=== PATIENT | female | born 1955 | race Caucasian/White ===

== ENCOUNTER 2020-03-08 11:12 | Inpatient (IN) ==
[2020-03-08] MEDS ORDERED: ceFAZolin 2 GM in DEXTROSE 5% IN WATER 50 ML IV SCH (11:15)
[2020-03-08] MEDS ORDERED: LIDOCAINE HCL/PF 100 MG/5 ML SYRINGE IV ONE (13:05)
[2020-03-08] MEDS ORDERED: fentaNYL 100 MCG/2 ML VIAL IV ONE (13:05)
[2020-03-08] MEDS ORDERED: KETAMINE 100 MG/ML ML IV ONE (13:05)
[2020-03-08] MEDS ORDERED: HYDROmorphone 1 MG/ML SYRINGE IV ONE (13:05)
[2020-03-08] MEDS ORDERED: PHENYLEPHRINE 10 MG/ML VIAL IV ONE (13:05)
[2020-03-08] MEDS ORDERED: DEXAMETHASONE 10 MG/ML VIAL IV ONE (13:05)
[2020-03-08] MEDS ORDERED: GLYCOPYRROLATE 0.2 MG/ML VIAL IV ONE (13:05)
[2020-03-08] MEDS ORDERED: KETOROLAC 30 MG/ML VIAL IV ONE (13:05)
[2020-03-08] MEDS ORDERED: PROPOFOL 200 MG/20 ML VIAL IV ONE (13:05)
[2020-03-08] MEDS ORDERED: TRANEXAMIC ACID 1,000 MG/10 ML VIAL IV ONE (13:05)
[2020-03-08] MEDS ORDERED: ONDANSETRON 4 MG/2 ML VIAL IV ONE (13:05)
[2020-03-08] MEDS ORDERED: ACETAMINOPHEN 700 MG/70 ML BOTTLE IV ONE (14:42)
[2020-03-08] MEDS ORDERED: LABETALOL 5 MG/ML ML IV PRN (14:42)
[2020-03-08] MEDS ORDERED: fentaNYL 100 MCG/2 ML VIAL IV PRN (14:42)
[2020-03-08] MEDS ORDERED: NALOXONE HCL 0.4 MG/ML VIAL IV PRN (14:42)
[2020-03-08] MEDS ORDERED: MEPERIDINE 25 MG/ML SYRINGE IV PRN (14:42)
[2020-03-08] MEDS ORDERED: METHOCARBAMOL 1,000 MG/10 ML VIAL IV PRN (14:42)
[2020-03-08] MEDS ORDERED: FLUMAZENIL 0.1 MG/ML ML IV PRN (14:42)
[2020-03-08] MEDS ORDERED: ONDANSETRON 4 MG/2 ML VIAL IV PRN (14:42)
[2020-03-08] MEDS ORDERED: IPRATROPIUM/ALBUTEROL 3 ML AMPUL.NEB NEB PRN (14:42)
[2020-03-08] MEDS ORDERED: METOPROLOL TARTRATE 5 MG/5 ML VIAL IV PRN (14:42)
[2020-03-08] MEDS ORDERED: LACTATED RINGERS 250 ML IV PRN (14:42)
--- NOTE | 2020-03-08 15:59 | Brief Operative Note ---
Brief Operative Note Date of procedure: 03/08/20 Pre-op diagnosis: right lateral tibial plateau fracture Post-op diagnosis: same Procedure: ORIF of right tibial plateau fracture Grafts/Implants: Yes Anesthesia: spinal and GLMA Findings: split depressed tibial plateau fracture Complications: none Surgeon: Richardson Rivas Fluxer: Alexx Ball Estimated blood loss (cc): 30 Tourniquet Time (Minutes): 120 Specimens Removed/Pathology: none sent Condition: stable Disposition: PACU
[2020-03-08] MEDS: LACTATED RINGERS 1,000 ML IV SCH ×2 (16:05→16:21)
[2020-03-08] MEDS ORDERED: FLEETS ADULT ENEMA PR PRN (16:10)
[2020-03-08] MEDS ORDERED: POLYETHYLENE GLYCOL 3350 17 GM PACKET PO PRN (16:10)
[2020-03-08] MEDS ORDERED: BENZOCAINE/MENTHOL 1 LOZENGE PO PRN (16:10)
[2020-03-08] MEDS ORDERED: MAGNESIUM HYDROXIDE 30 ML ORAL.SUSP PO PRN (16:10)
[2020-03-08] MEDS ORDERED: BISACODYL 10 MG SUPP.RECT PR PRN (16:10)
--- NOTE | 2020-03-08 16:13 | XRay Report ---
INDICATION: ORIF Tibial Plateau TECHNIQUE: 1.5 minutes fluoroscopy and 3.21 mGy exposure utilized by Dr[address] Rivas. Intraoperative spot films obtained IMPRESSION: Open reduction and internal fixation of right tibial plateau fracture Interpreted and Authenticated by: Ryan Benitez 03/08/20
[2020-03-08] MEDS ORDERED: LACTATED RINGERS 1,000 ML IV SCH (16:15)
--- NOTE | 2020-03-08 17:02 | XRay Report ---
INDICATION: s/p orif tibial plateau fracture TECHNIQUE: AP and lateral COMPARISON: Preoperative plain film dated 03/07/2020. Preoperative CT scan dated 03/07/2020 FINDINGS:Status post open reduction and internal fixation of right lateral tibial plateau fracture. There is plate and screw fixation. There is methylmethacrylate within the right tibial metaphysis. Alignment is markedly improved and essentially anatomic IMPRESSION: Open reduction and internal fixation of right lateral tibial plateau fracture Interpreted and Authenticated by: Ryan Benitez 03/08/20
[2020-03-08] MEDS: ceFAZolin 1 GM in DEXTROSE 5% IN WATER 50 ML IV SCH ×2 (17:20→17:23)
[2020-03-08] MEDS: VANCOMYCIN 1 GM VIAL TOPICAL SCH (17:24)
[2020-03-08] MEDS: oxyCODONE HCL 5 MG TABLET PO PRN ×2 (19:15→23:10)
[2020-03-08] MEDS ORDERED: ACETAMINOPHEN 325 MG TABLET PO SCH (22:00)
[2020-03-08] MEDS: ceFAZolin 1 GM VIAL IV SCH (22:02)
[2020-03-08] MEDS: DOCUSATE SODIUM 100 MG CAPSULE PO SCH (22:03)
[2020-03-08] MEDS: ACETAMINOPHEN 500 MG TABLET PO SCH (22:03)
[2020-03-08] MEDS: APIXABAN 5 MG TABLET PO SCH (22:03)
[2020-03-08] MEDS: SENNOSIDES 1 TABLET PO SCH (22:04)
[2020-03-09] MEDS: oxyCODONE HCL 5 MG TABLET PO PRN ×6 (03:06→21:46)
[2020-03-09] MEDS: ceFAZolin 1 GM VIAL IV SCH (03:37)
[2020-03-09] MEDS: METHOCARBAMOL 1,000 MG/10 ML VIAL IV PRN ×2 (04:24→13:21)
[2020-03-09] MEDS: ACETAMINOPHEN 500 MG TABLET PO SCH ×3 (05:36→21:35)
--- NOTE | 2020-03-09 07:28 | Operative Note ---
DATE OF OPERATION: 03/08/2020 PREOPERATIVE DIAGNOSIS: Right lateral tibial plateau fracture. POSTOPERATIVE DIAGNOSIS: Right lateral tibial plateau fracture. PROCEDURE PERFORMED: Open reduction and internal fixation of right lateral tibial plateau fracture. SURGEON: Richardson Rivas MD PULP COOKER: Alexx Ball PA-C. This provider's expertise and technical skill were required throughout the case. The PA assisted with preoperative coordination, intraoperative retraction, wound closure, dressing and splint application, as well as postoperative documentation and care coordination. ANESTHESIA: Spinal with general. IV FLUIDS: 1300 mL lactated ringer. ESTIMATED BLOOD LOSS: 30 mL. TOURNIQUET TIME: 2 hours at 225 mmHg. IV ANTIBIOTICS: 2 grams Ancef. IMPLANTS: Synthes short bend proximal tibial plate. K-wires x3 0.045. Norian bone cement. PATHOLOGY/LAB: None. INTRAOPERATIVE COMPLICATIONS: None apparent. OPERATIVE FINDINGS: Split depression fracture of the lateral tibial plateau, significant osteopenic bone. INDICATIONS: The patient is a 64-year-old female who fell over the weekend and presented to the Emergency Department yesterday with a tibial plateau fracture. She was subsequently referred to the orthopedic clinic today where she was evaluated and found to have a significant depressed fragment of over 1 cm long with a proximal fibula fracture. I discussed this with her at length and the treatment options with recommendation for operative treatment. I discussed that this would likely improve her overall functional status and realign her mechanical axis and improve range of motion and decrease long-term pain. I did discuss she has baseline risk of arthritis as well as chronic pain from retained hardware symptomatic given her small habitus. She understands the risks as well as the treatment options. She understands the nonweightbearing portion postoperatively and is able to be compliant with this. Given that, she does want to proceed with surgery. DESCRIPTION OF PROCEDURE: The patient was met in the preoperative holding area where site was verified and marked with the patient's input. She was then taken back to the operating room where she underwent successful spinal and then under general anesthesia, she was placed in supine position with her right lower extremity padded and a well-padded tourniquet placed about the proximal thigh with a small ipsilateral bump. She was then prepped and draped in the usual sterile fashion with ChloraPrep. A surgical timeout was performed to verify patient identity, correct procedure being performed, correct extremity being operated on and everybody was in agreement. Esmarch was utilized to exsanguinate the lower extremity and tourniquet was insufflated at 225 mmHg. I created an incision from just proximal to the joint line through the ITB, incised in curvilinear fashion tracking of the tubercle a finger and a half breadth off the tibial crest. Skin was sharply incised. The fascia of the anterior compartment was identified as well as the greater tubercle and the IT band proximally. Gilpy retractors were placed, incised in line with the fibers of the IT band over the greater tubercle and in line with the fascia over the anterior compartment. These were then elevated anteriorly and posteriorly and care was taken to dissect this free from the joint capsule itself. No arthrotomy was made at this point. Once the anterior and posterior flaps were taken the posterior was all the way taken back to the level of the anterior aspect of the fibula. I wanted to go to this extent given that most of the depressed fragments appeared to be most posteriorly. A submeniscal arthrotomy was made. 2-0 Ethibond sutures were placed to retract. Hematoma was evacuated and irrigated with normal saline throughout the case. Joint space was easily identified and had significant depression. At this point, there was a split laterally as well. This was booked open with a small cortical window more inferiorly to get a better angle for tamping these fragments off. Then, under fluoroscopy, these fragments were tamped up and the osteophytic bone compressed quite a bit leaving a large void. The posterior portion was elevated until directly visualized and with posterior comminution.. I did impact 30 mL of cortical bone chips here, approximately half the packet and then once the height was restored I closed the lateral split fragment and placed 3 K-wires subchondral to hold this up. I did this on the lateral view as well on the AP to ensure that the reduction was maintained. I then impacted the remainder of the cortical bone chips within the void. There was still a fairly large void left. At this point, I placed the plate and placed the screw in the oblong hole to compress the plate to the bone and placed two K-wires in the plate distally to keep the rotational alignment. Then, utilizing a pelvic reduction clamp I decreased with of the overall tibial plateau. Subsequently, we placed two nonlocking screws in the proximal portion of the plate to compress the fracture even further. I was able to compress it; however, not completely down to where the lateral tibial plateau is in line with the lateral border of the femoral condyle; however, it was improved and overall joint articulation was near anatomic under direct visualization. I was unable to contine to compress as the point to point clamp did penetrate the medial cortex given the osteoporotic bone. Placed the rafting screws in the 2 rows of screws in the plate which were locking. The non locking screws were changed out for locking screws. Placed the most distal screw in the plate-3.5 cortical nonlocking as well and then placed a kickstand screw in a locking fashion. The remaining void was then filled with Norian bone cement. The wounds were copiously irrigated. Final radiographs were taken and seemed satisfactory. The anterior compartment fascia was closed with 0 Vicryl. The IT band split was closed with a Stratafix in running fashion, subcutaneous tissue with a 3-0 Vicryl and skin closed with felicia. I did place vancomycin powder deep in the wound. The leg was then cleaned and dried. Xeroform was placed along with fluffs, Webril and Josse wrap and into a knee immobilizer in which she had arrived. At this point, the patient was awoken from anesthesia, transferred to PACU in stable condition. PLAN: The patient will be admitted for postoperative pain control and evaluation by Physical Therapy for significant weakness. MARIAN:gloria Job ID: [id number] Doc ID: [id number] Richardson VALENCIA
[2020-03-09] MEDS: DOCUSATE SODIUM 100 MG CAPSULE PO SCH ×2 (09:31→21:34)
[2020-03-09] MEDS: APIXABAN 5 MG TABLET PO SCH ×2 (09:31→21:33)
[2020-03-09] MEDS: FOLIC ACID 1 MG TABLET PO SCH (09:31)
[2020-03-09] MEDS: 0.9 % SODIUM CHLORIDE 10 ML SYRINGE IV SCH (09:32)
[2020-03-09] MEDS: LISINOPRIL 10 MG TABLET PO SCH (09:32)
--- NOTE | 2020-03-09 13:34 | Orthopedic Progress Note ---
SUBJECTIVE Subjective Patient information: Note initiated : 03/09/20 at 1:27 pm Service Date, if different from initiated Date: [] Patient: Fred Christine 64 y/o F admitted on 03/08/20 for Right Tibial Plateau Open Reduction Internal . Chief Complaint: [POD 1 s/p ORIF right tibial plateau fracture. Pain controlled. No chest pain or shortness of breath. No new complaints.] Constitutional Vitals: Vital Signs Temp Pulse Resp BP Pulse Ox 98.1 F 94 H 12 100/57 90 03/09/20 08:00 03/09/20 08:00 03/09/20 08:00 03/09/20 08:00 03/09/20 08:00 Period Temp Pulse Resp BP Sys/Bartlett Pulse Ox Last 24 Hr 97.1 F-99.6 F 71-114 10-20 90-143/43-72 90-99 Intake and Output 03/08/20 03/09/20 03/09/20 21:59 05:59 13:59 Intake Total 2075 360 Output Total 1130 200 Balance 945 160 Intake & Output: Intake & Output 03/08/20 03/09/20 03/09/20 21:59 05:59 13:59 Intake Total 2075 360 Output Total 1130 200 Balance 945 160 Intake: IV 75 Lactated Ringers 1,000 ml @ 20 5 mls/hr IV .Q24H [facility] Rx#: [id number] Oral 360 IV - Manual Only 2000 Output: Urine Catheter Amount 1100 Straight 1100 Void Amount 200 Estimated Blood Loss 30 Other: Urine Appearance Clear Urine Color Dark Yellow Urine Odor Normal General: awake, alert and oriented. appropriate Right leg: dressing in place and is dry. Foot warm well perfused, sensation is intact to light touch. OBJ DATA Labs Meds: Medications Acetaminophen (Tylenol) 1,000 mg PO Q8 [facility]; Protocol Last Admin: 03/09/20 13:21 Dose: 1,000 mg Documented by: Apixaban (Eliquis) 2.5 mg PO BID [facility] Last Admin: 03/09/20 09:31 Dose: 2.5 mg Documented by: Bisacodyl (Dulcolax) 10 mg GA Q2-3DAYS PRN PRN Reason: Constipation Docusate Sodium (Colace) 100 mg PO BID [facility] Last Admin: 03/09/20 09:31 Dose: 100 mg Documented by: Folic Acid (Folic Acid) 1 mg PO DAILY [facility] Last Admin: 03/09/20 09:31 Dose: 1 mg Documented by: Lisinopril (Zestril) 10 mg PO DAILY [facility] Last Admin: 03/09/20 09:32 Dose: 10 mg Documented by: Magnesium Hydroxide (Milk Of Magnesia) 30 ml PO BIDP PRN PRN Reason: Constipation Methocarbamol (Robaxin) 750 mg IV Q6HP PRN PRN Reason: Muscle Spasm Last Admin: 03/09/20 13:21 Dose: 750 mg Documented by: Oxycodone HCl (Roxicodone) 0 mg PO Q4HP PRN; Protocol PRN Reason: Per Pain Protocol Last Admin: 03/09/20 10:34 Dose: 10 mg Documented by: Polyethylene Glycol (Miralax) 17 gm PO DAILYP PRN PRN Reason: Constipation Senna (Senokot) 2 tab PO HS [facility] Last Admin: 03/08/20 22:04 Dose: 2 tab Documented by: Sodium Biphosphate/Sodium Phosphate (Fleets Adult) 1 dose GA Q3-4DAYS PRN PRN Reason: Constipation Sodium Chloride (Saline Flush) 10 ml IV DAILY [facility] Last Admin: 03/09/20 09:32 Dose: 10 ml Documented by: Throat Lozenges (Cepacol) 1 lozenge PO PRN PRN PRN Reason: Sore Throat Vancomycin HCl (Vancomycin) 1 gm TOPICAL ONCE [facility]; Protocol Last Admin: 03/08/20 17:24 Dose: Not Given Documented by: A/P Time Spent With Patient Time: A/P: POD 1 s/p ORIF right tibial plateau fracture -- PT/OT- non weight bearing right lower extremity for 10-12 weeks. -------ROM 0-90 degrees -- oral pain medications -- regular diet -- home meds -- prophy: IS, scds, mobilization, eliquis -- Dispo: patient is fairly decondition with weakness in bilateral lower extremities and mobilization is difficult now that she is non weight bearing right lower extremity. Will see how she does with therapy. She may need a short stay at a rehab facility.
[2020-03-09] MEDS: VANCOMYCIN 1 GM VIAL TOPICAL SCH (14:35)
[2020-03-09] MEDS: SENNOSIDES 1 TABLET PO SCH (21:33)
[2020-03-10] MEDS: oxyCODONE HCL 5 MG TABLET PO PRN ×3 (01:59→09:58)
[2020-03-10] MEDS: ACETAMINOPHEN 500 MG TABLET PO SCH (05:58)
[2020-03-10] MEDS: FOLIC ACID 1 MG TABLET PO SCH (09:56)
[2020-03-10] MEDS: APIXABAN 5 MG TABLET PO SCH (09:56)
[2020-03-10] MEDS: DOCUSATE SODIUM 100 MG CAPSULE PO SCH (09:57)
[2020-03-10] MEDS: LISINOPRIL 10 MG TABLET PO SCH (09:59)
--- NOTE | 2020-03-10 10:26 | Orthopedic Progress Note ---
SUBJECTIVE Subjective Patient information: Note initiated : 03/10/20 at 10:19 am Service Date, if different from initiated Date: [] Patient: Fred Christine 64 y/o F admitted on 03/08/20 for Right Tibial Plateau Open Reduction Internal . Chief Complaint: [POD 2 s/p right lateral tibial plateau fracture doing ok. She is fairly weak making mobilization a bit more difficult. No chest pain or shortness or breath. Pain is ok.] Constitutional Vitals: Vital Signs Temp Pulse Resp BP Pulse Ox 98.1 F 75 20 105/53 96 03/10/20 08:00 03/10/20 08:00 03/10/20 08:00 03/10/20 08:00 03/10/20 08:00 Period Temp Pulse Resp BP Sys/Bartlett Pulse Ox Last 24 Hr 98.1 F-98.4 F 70-95 12-20 93-115/44-58 90-96 Intake and Output 03/09/20 03/10/20 03/10/20 21:59 05:59 13:59 Intake Total 240 340 Output Total 300 200 Balance -60 340 -200 Weight 116 lb Intake & Output: Intake & Output 03/09/20 03/10/20 03/10/20 21:59 05:59 13:59 Intake Total 240 340 Output Total 300 200 Balance -60 340 -200 Weight 116 lb Intake: Oral 240 340 Output: Void Amount 300 200 Other: Meal Breakfast Percent of Meal Consumed 25% Urine Appearance Clear Clear Urine Color Bright Yellow Bright Yellow Urine Odor Normal General: awake, alert and oriented. Appropriate Right leg: dressing removed. Incision is clean and dry. No drainage or indication of infection. Significant quad atrophy. Can get to full knee extension. Able to PF/DF ankle and flex/ext digits. Foot warm well perfused. Senstaion to light touch intact throughout the foot. OBJ DATA Labs Meds: Medications Acetaminophen (Tylenol) 1,000 mg PO Q8 [facility]; Protocol Last Admin: 03/10/20 05:58 Dose: 1,000 mg Documented by: Apixaban (Eliquis) 2.5 mg PO BID [facility] Last Admin: 03/10/20 09:56 Dose: 2.5 mg Documented by: Bisacodyl (Dulcolax) 10 mg CA Q2-3DAYS PRN PRN Reason: Constipation Docusate Sodium (Colace) 100 mg PO BID [facility] Last Admin: 03/10/20 09:57 Dose: 100 mg Documented by: Folic Acid (Folic Acid) 1 mg PO DAILY [facility] Last Admin: 03/10/20 09:56 Dose: 1 mg Documented by: Lisinopril (Zestril) 10 mg PO DAILY [facility] Last Admin: 03/10/20 09:59 Dose: 10 mg Documented by: Magnesium Hydroxide (Milk Of Magnesia) 30 ml PO BIDP PRN PRN Reason: Constipation Methocarbamol (Robaxin) 750 mg IV Q6HP PRN PRN Reason: Muscle Spasm Last Admin: 03/09/20 13:21 Dose: 750 mg Documented by: Oxycodone HCl (Roxicodone) 0 mg PO Q4HP PRN; Protocol PRN Reason: Per Pain Protocol Last Admin: 03/10/20 09:58 Dose: 10 mg Documented by: Polyethylene Glycol (Miralax) 17 gm PO DAILYP PRN PRN Reason: Constipation Senna (Senokot) 2 tab PO HS [facility] Last Admin: 03/09/20 21:33 Dose: 2 tab Documented by: Sodium Biphosphate/Sodium Phosphate (Fleets Adult) 1 dose CA Q3-4DAYS PRN PRN Reason: Constipation Sodium Chloride (Saline Flush) 10 ml IV DAILY [facility] Last Admin: 03/09/20 09:32 Dose: 10 ml Documented by: Throat Lozenges (Cepacol) 1 lozenge PO PRN PRN PRN Reason: Sore Throat Vancomycin HCl (Vancomycin) 1 gm TOPICAL ONCE [facility]; Protocol Last Admin: 03/09/20 14:35 Dose: Not Given Documented by: A/P Time Spent With Patient Time: POD 2 s/p ORIF of right tibial plateau fracture doing ok. -- non weight bearing. She needs a hinged knee brace so she can work on ROM exercises while supporting the fracture and bend her knee while sitting. The proximal fibula needs to be supported during ROM. Discussed this with her and hinged knee brace is ordered. -- PT/OT- limited mobility but improving, needs to work on quad strengthening as well -- oral pain meds -- regular diet -- IS/foot pumps, mobilization, eliquis -- dispo: plan for d/c today with home health. Will need the hinged knee brace prior to d/c. meds and forms filled out.
[2020-03-10] MEDS: 0.9 % SODIUM CHLORIDE 10 ML SYRINGE IV SCH (10:33)
--- NOTE | 2020-03-10 11:31 | Discharge Summary ---
Discharge Provider Provider Patient information: Note initiated : 03/10/20 at 11:28 am Service Date, if different from initiated Date: [] Patient: Fred Christine 64 y/o F admitted on 03/08/20 for Right Tibial Plateau Open Reduction Internal . Chief Complaint: Right leg pain Date of admission: 03/08/20 16:10 Discharge date: 03/10/20 COURSE Hospital Course Hospital course: Pt is POD#2 s/p ORIF right tibial plateau fracture. Discharge diagnosis: closed fracture, right tibial plateau. Physical Examination Exam Incision healing: Yes Incision draining: No Incision red: No Incision swollen: No Clean and dry: Yes Weight bearing status: none (nonweightbearing with right leg.) DC Instructions-General Patient Instructions Additional Dressing Instructions: may shower with silver dressing in place. Discharge Plan Patient/Caregiver Discharge Instructions Activity: non-weight bearing Diet: Regular Diet Activity Restrictions/Additional Instructions: Nonweightbearing with the right leg. ROM restrictions: 0-90 degrees. Remain in the knee brace locked in extension while transferring. Work on quad sets, heel slides to 90 degrees and ankle pumps. Keep dressing clean and dry. OK to shower with silver dressing in place. If becomes wet or begins to come off, OK to change to new dry dressing. Otherwise keep in place until followup with orthopedics in 2 weeks for staple removal and wound check. Prescriptions: New acetaminophen [Tylenol Extra Strength] 500 mg Tablet 1,000 mg PO Q8 Qty: 60 RF: 0 docusate sodium 100 mg Capsule 100 mg PO BID Qty: 60 RF: 0 oxycodone 5 mg Tablet 10 mg PO Q4HP PRN (Reason: Per Pain Protocol) Qty: 60 RF: 0 Eliquis 5 mg Tablet 2.5 mg PO BID Qty: 60 RF: 0 Continued folic acid 1 MG tablet 1 mg PO DAILY RF: 0 ondansetron 4 MG tablet 4 mg SL Q6HP PRN (Reason: Nausea) RF: 0 lisinopril 10 mg tablet 10 mg PO DAILY RF: 0 Other Ambulatory Orders: Brace/Splint (ONCE) Timeframe: [id number] Location: None Selected Ordered By: Richardson Rivas Follow Up Plan Follow up with: Alexx Ball PA-C [Physician Wide Piece Goods Inspector] - (f/u in 2 weeks--postop for staple removal and wound check. ) Rivas,Richardson Mikayla, MD [Physician] - (Follow up with on Mar.24 at 920 am) Patient Disposition: Home Health Service Rehab Potential: Good Overall status at discharge: patient is progressing back to baseline Discharge Orders: Discharge Order (Routine); Ordered 03/10/20 Ordered By: Alexx Ball Pending Pending Pending: Resuscitation Status Full Code Diet Regular Diet Start SunMar 09 1703 Acetaminophen (Tylenol) 1,000 mg PO Q8 [facility]; Protocol Last Admin: 03/10/20 05:58 Dose: 1,000 mg Documented by: Admin: 03/09/20 21:35 Dose: 1,000 mg Documented by: Admin: 03/09/20 13:21 Dose: 1,000 mg Documented by: Admin: 03/09/20 05:36 Dose: 1,000 mg Documented by: Admin: 03/08/20 22:03 Dose: 1,000 mg Documented by: NUPUR Apixaban (Eliquis) 2.5 mg PO BID [facility] Last Admin: 03/10/20 09:56 Dose: 2.5 mg Documented by: Admin: 03/09/20 21:33 Dose: 2.5 mg Documented by: Admin: 03/09/20 09:31 Dose: 2.5 mg Documented by: Admin: 03/08/20 22:03 Dose: 2.5 mg Documented by: NUPUR Docusate Sodium (Colace) 100 mg PO BID [facility] Last Admin: 03/10/20 09:57 Dose: 100 mg Documented by: Admin: 03/09/20 21:34 Dose: 100 mg Documented by: Admin: 03/09/20 09:31 Dose: 100 mg Documented by: Admin: 03/08/20 22:03 Dose: 100 mg Documented by: NUPUR Folic Acid (Folic Acid) 1 mg PO DAILY [facility] Last Admin: 03/10/20 09:56 Dose: 1 mg Documented by: Admin: 03/09/20 09:31 Dose: 1 mg Documented by: DIANA Lisinopril (Zestril) 10 mg PO DAILY [facility] Last Admin: 03/10/20 09:59 Dose: 10 mg Documented by: Admin: 03/09/20 09:32 Dose: 10 mg Documented by: DIANA Methocarbamol (Robaxin) 750 mg IV Q6HP PRN PRN Reason: Muscle Spasm Last Admin: 03/09/20 13:21 Dose: 750 mg Documented by: Admin: 03/09/20 04:24 Dose: 750 mg Documented by: NUPUR Oxycodone HCl (Roxicodone) 0 mg PO Q4HP PRN; Protocol PRN Reason: Per Pain Protocol Last Admin: 03/10/20 09:58 Dose: 10 mg Documented by: Admin: 03/10/20 05:58 Dose: 10 mg Documented by: Admin: 03/10/20 01:59 Dose: 10 mg Documented by: Admin: 03/09/20 21:46 Dose: 10 mg Documented by: Admin: 03/09/20 17:52 Dose: 10 mg Documented by: Admin: 03/09/20 13:52 Dose: 10 mg Documented by: Admin: 03/09/20 10:34 Dose: 10 mg Documented by: Admin: 03/09/20 06:38 Dose: 10 mg Documented by: Admin: 03/09/20 03:06 Dose: 10 mg Documented by: Admin: 03/08/20 23:10 Dose: 10 mg Documented by: Admin: 03/08/20 19:15 Dose: 10 mg Documented by: NUPUR Senna (Senokot) 2 tab PO HS [facility] Last Admin: 03/09/20 21:33 Dose: 2 tab Documented by: Admin: 03/08/20 22:04 Dose: 2 tab Documented by: NUPUR Sodium Chloride (Saline Flush) 10 ml IV DAILY [facility] Last Admin: 03/10/20 10:33 Dose: Not Given Documented by: Admin: 03/09/20 09:32 Dose: 10 ml Documented by: DIANA Vancomycin HCl (Vancomycin) 1 gm TOPICAL ONCE [facility]; Protocol Last Admin: 03/09/20 14:35 Dose: Not Given Documented by: Admin: 03/08/20 17:24 Dose: Not Given Documented by: DIANA Shift Summary 03/10/20 02:40 Shift Summary by Jasmin Mendieta. VSS on RA. Patient is non weight bearing to the right leg. 2 oxycodone Q4H through night to control pain, also receiving scheduled 1000mg of tylenol and using ice. Patient still struggling with pain management the pain medication is not lasting her 4 hours. Patient probably discharging today with home health. Will update at bedside. Initialized on 03/10/20 02:40 - END OF NOTE
== END 2020-03-10 13:10 | disposition home health service (06) | DRG 493 ==
LOC: SUR 11:12 → MEDSUR 16:10
PROVIDERS: ADMIT Orthopaedic Surgery; ATTEND Orthopaedic Surgery

== ENCOUNTER 2021-02-11 04:49 | Inpatient (IN) ==
[2021-02-11] MEDS ORDERED: ONDANSETRON 4 MG/2 ML VIAL IV ONE (05:34)
[2021-02-11] MEDS ORDERED: 0.9 % SODIUM CHLORIDE 1,000 ML IV ONE (05:35)
--- NOTE | 2021-02-11 05:38 | Emergency Department Note ---
Lower Extremity Injury HPI General Chief Complaint: Extremity Injury, Lower Stated Complaint: fall Time Seen by Provider: 02/11/21 05:27 Source: EMS Mode of arrival: EMS Limitations: no limitations History of Present Illness HPI Narrative: Narrative: The patient presents to the ED with complaints of left hip pain. She said that she lost her footing and fell onto the floor, striking her left hip. She lay on the floor for 3 hours. She was unable to get up. She denies striking her head. She denies loss of consciousness. She denies neck or back pain. She denies chest or abdominal pain. She denies any other extremity injury. Moving the hip makes it worse. No radiation or migration of the pain. Related Data Home Medications Medication Instructions Recorded Confirmed folic acid 1 mg PO DAILY 12/05/19 01/19/21 alendronate 70 mg tablet 70 mg PO QWEEK 04/15/20 01/19/21 cholecalciferol (vitamin D3) 50 50 mcg PO QDAY 04/15/20 01/19/21 mcg (2,000 unit) capsule fluticasone 250 mcg-salmeterol 50 1 inh INHALATION BID 12/21/20 01/19/21 mcg/dose blistr powdr for inhalation ipratropium 0.5 mg-albuterol 3 mg 3 ml INHALATION Q6H PRN 12/21/20 01/19/21 (2.5 mg base)/3 mL nebulization soln magnesium oxide 400 mg PO BID 12/21/20 01/19/21 nicotine 21 mg/24 hr daily 1 patch TRANSDERMAL QDAY 12/21/20 01/19/21 transdermal patch buprenorphine-naloxone 1 film SUBLINGUAL DAILY 02/11/21 02/11/21 furosemide 20 mg PO DAILY 02/11/21 02/11/21 potassium chloride [Klor-Con M20] 20 meq PO DAILY 02/11/21 02/11/21 Previous Rx's Medication Instructions Recorded prochlorperazine maleate 5 mg 5 mg PO Q6HP PRN #24 tab 08/10/20 tablet sertraline 100 mg tablet 100 mg PO QDAY #30 tab 12/02/20 cefuroxime axetil 500 mg tablet 500 mg PO BID #14 tab 12/21/20 furosemide 20 mg tablet 20 mg PO QAM #30 tab 01/19/21 primidone 50 mg tablet 50 mg PO QHS #30 tab 01/19/21 lisinopril 10 mg tablet 10 mg PO DAILY #30 tab 01/25/21 Allergies Allergy/AdvReac Type Severity Reaction Status Date / Time latex Allergy Intermediate Rash Verified 01/19/21 14:04 naproxen Allergy Unknown Unknown Verified 01/19/21 14:04 pregabalin [From Lyrica] Allergy Unknown Other Verified 01/19/21 14:04 Amoxicillin [From Augmentin] AdvReac Intermediate vomiting Verified 01/19/21 14:04 and diarrhea clavulanic acid AdvReac Intermediate vomiting Verified 01/19/21 14:04 [From Augmentin] and diarrhea Review of Systems ROS ROS Narrative: Narrative: All systems ED: reviewed and negative except as stated. [facility] Narrative Patient History Narrative: Narrative: Medical/Surgical/Family History All Active Problems (Updated 02/11/21 @ 06:58 by Levy Joshua MD) Closed fracture of left hip (Acute) Fall (Acute) Lower extremity edema (Acute) Hallucinations (Acute) Dorsalgia of thoracolumbar region (Acute) Weakness generalized (Acute) Alcoholic ketoacidosis (Acute) Pneumonia (Acute) Alcohol withdrawal syndrome (Acute) Chest pain, atypical (Acute) Encounter for medical screening examination (Acute) Alcohol abuse (Acute) Macrocytic anemia (Acute) Alcoholism (Acute) Elevated liver enzymes (Acute) Migraine headache (Acute) Left acoustic neuroma (Chronic) Cataracts, bilateral (Acute) Hearing loss in left ear (Acute) Tremor (Chronic) Head injury (Acute) Depression (Acute) Chronic pain (Acute) Opioid use disorder (Acute) Intention tremor (Acute) Acute right hip pain (Acute) Osteoporosis (Acute) Weight loss (Acute) Bilateral lower extremity edema (Acute) Chronic diarrhea (Acute) Goiter (Acute) Tobacco abuse (Acute) Allergic rhinitis (Acute) Reflex sympathetic dystrophy of lower limb (Acute) Reflex sympathetic dystrophy (Acute) Radiculopathy of lumbar region (Acute) Pain in limb (Acute) Macrocytosis (Acute) Insomnia (Acute) Hyperglycemia (Acute) Fatigue (Acute) Postmenopausal atrophic vaginitis (Acute) Asthma (Acute) Medical History (Updated 02/11/21 @ 06:58 by Levy Joshua MD) Acute pain of right knee Allergic rhinitis Asthma Bilateral lower extremity edema Bronchitis Cataracts, bilateral Cholelithiasis and cholecystitis without obstruction Chronic diarrhea Closed fracture of fibula, proximal, right Closed fracture of right tibial plateau Community acquired pneumonia Dehydration Dorsalgia of thoracolumbar region Drug interaction Fatigue Flu vaccine need Foot fracture (~1993) broke all bones in both feet, no surgery done Fracture, radius, distal Goiter Hallucinations Hyperglycemia Insomnia Left acoustic neuroma hearing loss; on MRI 07-17-20; nearly occluding L int aud canal, 2-3 mm size Lower extremity edema Macrocytosis Medicare annual wellness visit, initial Need for shingles vaccine Need for vaccination against Streptococcus pneumoniae using pneumococcal conjugate vaccine 13 Osteoporosis Pain in limb Persistent cough for 3 weeks or longer Post-op pain Postmenopausal atrophic vaginitis Radiculopathy of lumbar region Reflex sympathetic dystrophy Reflex sympathetic dystrophy of lower limb Sinusitis, acute Strain of lumbar region Swelling of right lower extremity Tobacco abuse Upper respiratory infection Weakness generalized Weight loss Surgical History History of appendectomy History of back surgery (~2014) lumbar disc surgery-2014 History of colonoscopy 2011 & 2017, Sidra Dunn History of laparoscopic cholecystectomy (12/06/19) Family History Mother Diabetes Sister Diabetes Father , age 80 Lung cancer, Onset Age: 80 Emphysema, unspecified Heart disease Myocardial infarction acute Social History Smoking Status: Current every day smoker Alcohol Intake Frequency: 0-2 drinks per day Substance Use: does not use Exam Narrative Narrative: Narrative: General Limitations: no limitations General appearance: Present alert and in no apparent distress Head Head: Present atraumatic and normal inspection Eye Eye: Present normal appearance, PERRL and EOMI ENT ENT: Present mucous membranes moist Neck Neck: Present normal inspection, full ROM and trachea midline; Absent tenderness Chest Chest: Present normal inspection and symmetric chest wall rise; Absent tenderness Respiratory Respiratory: Present normal lung sounds bilaterally; Absent respiratory distress Cardiovascular Cardiovascular: Present regular rate, normal rhythm and other (Left dorsalis pedis 2+) Adbominal Abdominal: Present soft; Absent distention and tenderness Extremities Extremities: Present normal inspection; Absent full ROM (Limited left hip flexion due to pain), tenderness (No tenderness to palpate the left hip) and other (Palpation of the rest of the skeletal system reveals no bony tenderness) Back Back: Present full ROM Neurological Neurological: Present alert and oriented X3; Absent motor sensory deficit (Motor and sensation intact in the left lower extremity) Psychiatric Psychiatric: Present normal affect and normal mood Skin Skin: Present warm (WNL) and dry Course Reevaluation(s) Reevaluation #1: I spoke to the orthopedic on-call, Dr. Geronimo. He asked me to admit to the hospitalist Time: 06:56 Vital Signs Vital signs: Vital Signs Temperature 98.8 F 02/11/21 04:50 Pulse Rate 109 H 02/11/21 04:50 Respiratory Rate 20 02/11/21 04:50 Blood Pressure 145/76 02/11/21 04:50 Pulse Oximetry (%) 91 02/11/21 04:50 Temperature 98.8 F 02/11/21 04:50 Pulse Rate 103 H 02/11/21 06:31 Respiratory Rate 20 02/11/21 04:50 Blood Pressure 136/71 02/11/21 06:31 Pulse Oximetry (%) 95 02/11/21 06:31 MDM MDM Narrative Medical decision making narrative: Narrative: The patient presents after mechanical fall in which she landed on her left hip. We will image the left hip and give morphine for pain. Plan also check a CK level to ensure that there is no sign of rhabdomyolysis. We will give a liter of fluid. At change of shift, the patient is handed over to the oncoming physician who will follow up on the remaining studies as well as the discussion with the hospitalist Lab Data Lab results reviewed: Yes I reviewed the patient's lab results. ED POC Tests ED POC Tests: DILIP - SARS Antigen Negative Radiology Data Radiology results reviewed: Yes I reviewed the patient's radiology results. Discharge Plan Patient/Caregiver Discharge Instructions Pt seen by SENSITIZED PAPER TESTER/PA only: No Clinical Impression: Closed fracture of left hip Qualifiers: Encounter type: initial encounter Qualified Code(s): S72.002A - Fracture of unspecified part of neck of left femur, initial encounter for closed fracture Fall Qualifiers: Encounter type: initial encounter Qualified Code(s): W19.XXXA - Unspecified fall, initial encounter Patient Disposition: Xfer As Inpt ([facility]) Follow up with: Alexx Caro MD [Primary Care Provider] - Prescriptions: No Action prochlorperazine maleate 5 mg tablet 5 mg PO Q6HP PRN (Reason: migraines; nausea/vomiting) Qty: 24 RF: 0 sertraline 100 mg tablet 100 mg PO QDAY Qty: 30 RF: 2 lisinopril 10 mg tablet 10 mg PO DAILY Qty: 30 RF: 3 cholecalciferol (vitamin D3) 50 mcg (2,000 unit) capsule 50 mcg PO QDAY RF: 0 alendronate 70 mg tablet 70 mg PO QWEEK RF: 0 fluticasone propion-salmeterol 250-50 mcg/dose blister with device 1 inh inhalation BID RF: 0 magnesium oxide 400 mg magnesium capsule 400 mg PO BID RF: 0 ipratropium-albuterol 0.5 mg-3 mg(2.5 mg base)/3 mL solution for nebulization 3 ml inhalation Q6H PRNRF: 0 nicotine 21 mg/24 hr patch 24 hour 1 patch transdermal QDAY RF: 0 cefuroxime axetil 500 mg tablet 500 mg PO BID Qty: 14 RF: 0 primidone 50 mg tablet 50 mg PO QHS Qty: 30 RF: 3 furosemide 20 mg tablet 20 mg PO QAM Qty: 30 RF: 1 folic acid 1 MG tablet 1 mg PO DAILY RF: 0 potassium chloride [Klor-Con M20] 20 mEq tablet,ER particles/crystals 20 meq PO DAILY RF: 0 furosemide 20 mg tablet 20 mg PO DAILY RF: 0 buprenorphine-naloxone 8-2 mg film 1 film sublingual DAILY RF: 0
--- NOTE | 2021-02-11 06:14 | XRay Report ---
CLINICAL INFORMATION: L hip pain from mechanical fall COMPARISON: 03/24/2020 pelvic film FINDINGS: Nondisplaced transcervical fracture left femoral neck appreciated. Moderate left hip effusion noted. Both SI and hip joints are normal in width and alignment. IMPRESSION: Nondisplaced transcervical fracture-left femoral neck Interpreted and Authenticated by: Ryan Carlisle 02/11/21
[2021-02-11] MEDS: morphine 4 MG/ML VIAL IV SCH ×3 (06:17→10:02)
--- NOTE | 2021-02-11 08:09 | Emergency Department Note ---
ED Note Addendum Note Addendum: EKG: Sinus tachycardia rate of 104 borderline low voltage, borderline pro time prolonged QT interval, baseline wander.
[2021-02-11 08:10] LABS: Creatine Kinase 63 U/L (24-170)
--- NOTE | 2021-02-11 08:26 | Internal Med History&Physical ---
HPI History of Present Illness Patient information: Note initiated : 02/11/21 at 8:21 am Service Date, if different from initiated Date: [] Patient: Fred Christine a 65 y/o F admitted on for fall. Chief Complaint: [] History of present illness: Ms. Christine is a 65 year old F with a history of alcoholism , active smoker, anemia/hypertension/anxiety who presents to the ER complaining of hip pain following a fall this morning after she tripped and landed on her left hip early this morning and was on the floor for a few hours. Initial work-up in the ER was consistent with left hip fracture. Dr. Geronimo orthopedics was consulted and recommended hospitalization and surgical intervention. Subsequently hospitalist service was consulted to facilitate the process. At the time of my evaluation patient is alert and oriented. She is currently on 3 to 4 days oxygen due to significant pain in holding her breath. She however denies recent fever, chills, Covid symptoms, exposure to sick contacts, yellow productive sputum. She continues to drink alcohol regularly. She denies weakness following fall, lightheadedness, dizziness, loss of consciousness, urinary incontinence or unilateral sensation loss. Review of systems 10 point review system was performed and is negative except for ones discussed above PFSH PFSH All Active Problems (Updated 02/11/21 @ 06:58 by Levy Joshua MD) Closed fracture of left hip (Acute) Fall (Acute) Lower extremity edema (Acute) Hallucinations (Acute) Dorsalgia of thoracolumbar region (Acute) Weakness generalized (Acute) Alcoholic ketoacidosis (Acute) Pneumonia (Acute) Alcohol withdrawal syndrome (Acute) Chest pain, atypical (Acute) Encounter for medical screening examination (Acute) Alcohol abuse (Acute) Macrocytic anemia (Acute) Alcoholism (Acute) Elevated liver enzymes (Acute) Migraine headache (Acute) Left acoustic neuroma (Chronic) Cataracts, bilateral (Acute) Hearing loss in left ear (Acute) Tremor (Chronic) Head injury (Acute) Depression (Acute) Chronic pain (Acute) Opioid use disorder (Acute) Intention tremor (Acute) Acute right hip pain (Acute) Osteoporosis (Acute) Weight loss (Acute) Bilateral lower extremity edema (Acute) Chronic diarrhea (Acute) Goiter (Acute) Tobacco abuse (Acute) Allergic rhinitis (Acute) Reflex sympathetic dystrophy of lower limb (Acute) Reflex sympathetic dystrophy (Acute) Radiculopathy of lumbar region (Acute) Pain in limb (Acute) Macrocytosis (Acute) Insomnia (Acute) Hyperglycemia (Acute) Fatigue (Acute) Postmenopausal atrophic vaginitis (Acute) Asthma (Acute) Medical History (Updated 02/11/21 @ 06:58 by Levy Joshua MD) Acute pain of right knee Allergic rhinitis Asthma Bilateral lower extremity edema Bronchitis Cataracts, bilateral Cholelithiasis and cholecystitis without obstruction Chronic diarrhea Closed fracture of fibula, proximal, right Closed fracture of right tibial plateau Community acquired pneumonia Dehydration Dorsalgia of thoracolumbar region Drug interaction Fatigue Flu vaccine need Foot fracture (~1993) broke all bones in both feet, no surgery done Fracture, radius, distal Goiter Hallucinations Hyperglycemia Insomnia Left acoustic neuroma hearing loss; on MRI 07-17-20; nearly occluding L int aud canal, 2-3 mm size Lower extremity edema Macrocytosis Medicare annual wellness visit, initial Need for shingles vaccine Need for vaccination against Streptococcus pneumoniae using pneumococcal conjugate vaccine 13 Osteoporosis Pain in limb Persistent cough for 3 weeks or longer Post-op pain Postmenopausal atrophic vaginitis Radiculopathy of lumbar region Reflex sympathetic dystrophy Reflex sympathetic dystrophy of lower limb Sinusitis, acute Strain of lumbar region Swelling of right lower extremity Tobacco abuse Upper respiratory infection Weakness generalized Weight loss Surgical History History of appendectomy History of back surgery (~2014) lumbar disc surgery-2014 History of colonoscopy 2011 & 2017, Sidra Dunn History of laparoscopic cholecystectomy (12/06/19) Family History Mother Diabetes Sister Diabetes Father , age 80 Lung cancer, Onset Age: 80 Emphysema, unspecified Heart disease Myocardial infarction acute Social History marital status: alcohol intake frequency: 0-2 drinks per day substance use type: does not use MEDS/ALLERGIES Home Medications and Allergies Home Medications Medication Instructions Recorded Confirmed Type folic acid 1 mg PO DAILY 12/05/19 01/19/21 History alendronate 70 mg tablet 70 mg PO QWEEK 04/15/20 01/19/21 History cholecalciferol (vitamin D3) 50 50 mcg PO QDAY 04/15/20 01/19/21 History mcg (2,000 unit) capsule prochlorperazine maleate 5 mg 5 mg PO Q6HP PRN #24 tab 08/10/20 01/19/21 Rx tablet sertraline 100 mg tablet 100 mg PO QDAY #30 tab 12/02/20 01/19/21 Rx cefuroxime axetil 500 mg tablet 500 mg PO BID #14 tab 12/21/20 01/19/21 Rx fluticasone 250 mcg-salmeterol 50 1 inh INHALATION BID 12/21/20 01/19/21 History mcg/dose blistr powdr for inhalation ipratropium 0.5 mg-albuterol 3 mg 3 ml INHALATION Q6H PRN 12/21/20 01/19/21 History (2.5 mg base)/3 mL nebulization soln magnesium oxide 400 mg PO BID 12/21/20 01/19/21 History nicotine 21 mg/24 hr daily 1 patch TRANSDERMAL QDAY 12/21/20 01/19/21 History transdermal patch furosemide 20 mg tablet 20 mg PO QAM #30 tab 01/19/21 01/19/21 Rx primidone 50 mg tablet 50 mg PO QHS #30 tab 01/19/21 01/19/21 Rx lisinopril 10 mg tablet 10 mg PO DAILY #30 tab 01/25/21 Rx buprenorphine-naloxone 1 film SUBLINGUAL DAILY 02/11/21 02/11/21 History furosemide 20 mg PO DAILY 02/11/21 02/11/21 History potassium chloride [Klor-Con M20] 20 meq PO DAILY 02/11/21 02/11/21 History Allergies Allergy/AdvReac Type Severity Reaction Status Date / Time pregabalin [From Lyrica] Allergy Intermediate Localized Verified 02/11/21 11:04 swelling latex Allergy Mild Rash Verified 02/11/21 11:04 naproxen Allergy Unknown Unknown Verified 01/19/21 14:04 Amoxicillin [From Augmentin] AdvReac Mild vomiting Verified 02/11/21 11:04 and diarrhea clavulanic acid AdvReac Mild vomiting Verified 02/11/21 11:04 [From Augmentin] and diarrhea EXAM Constitutional Vitals: Temp Pulse Resp BP Pulse Ox 98.8 F 106 H 20 120/63 90 02/11/21 04:50 02/11/21 08:00 02/11/21 04:50 02/11/21 08:00 07/30/21 08:00 Head normocephalic Oral cavity moist No ear or nose discharge Eye no subconjunctival pallor, movement symmetrical S1-S2 occasionally irregular Diffuse crackles/wheezing on 3 L oxygen Nondistended nontender abdomen left lower extremity externally rotated and shortened, no cyanosis clubbing or joint swelling Skin no suspicious lesion Psych anxious but no hallucination Neuro normal higher function on limited neuro exam DATA Data Completed and Pending Labs: Labs from last 24 hours 02/11/21 02/11/21 02/11/21 07:30 07:30 07:30 WBC Pending RBC Pending Hgb Pending Hct Pending MCV Pending MCH Pending MCHC Pending RDW Pending Plt Count Pending MPV Pending Neut % (Auto) Pending PT Pending INR Pending Sodium Pending Potassium Pending Chloride Pending Carbon Dioxide Pending Anion Gap Pending BUN Pending Creatinine Pending GFR Calculation Pending Glucose Pending Calcium Pending Total Bilirubin Pending AST Pending ALT Pending Alkaline Phosphatase Pending Total Creatine Kinase Total Protein Pending Albumin Pending Globulin Pending Albumin/Globulin Ratio Pending 02/11/21 05:34 WBC RBC Hgb Hct MCV MCH MCHC RDW Plt Count MPV Neut % (Auto) PT INR Sodium Potassium Chloride Carbon Dioxide Anion Gap BUN Creatinine GFR Calculation Glucose Calcium Total Bilirubin AST ALT Alkaline Phosphatase Total Creatine Kinase 63 Total Protein Albumin Globulin Albumin/Globulin Ratio A/P Narrative A/P Narrative: * Left femoral neck fracture will be managed per orthopedics. Keep n.p.o./pain management/crystalloids * Preop risk evaluation-based on [employer] [employer] to stratification patient would fall under high risk category however she does not have history of congestive heart failure/CVA/DM type II or renal failure. There are no modifiable risk factors and can proceed with surgery however surgery and anesthesia specific risks will be addressed by individual care providers. * Mild hypoxia secondary to severe pain and underlying COPD. Previously not on oxygen. Chest imaging diffuse interstitial fibrosis. * History of hypertension hold FITO inhibitor until systolics over 140 * History of tobacco dependence continue current patch * History of alcoholism monitor for withdrawals. Start CIWA protocol * History of COPD continue bronchodilators * DVT prophylaxis be as per orthopedics Plan * Inpatient hospitalization * Keep n.p.o./crystalloid/pain management * Review postop * Pre-existing medical condition management will be continued on home medications * Delirium/alcohol withdrawal monitoring * PT OT/nutrition support postop Time Spent With Patient Time: Total time spent is greater than 50% in coordination of care (as documented) at patient's floor/unit and/or counseling patient:
[2021-02-11 08:33] LABS: Basophils # (Auto) 0.02 K/mcL (0.00-0.20); Basophils % (Auto) 0.2 % (0.0-2.0); Eosinophils # (Auto) 0.02 K/mcL (0.00-0.70); Eosinophils % (Auto) 0.2 % (0.0-7.0); Hematocrit 33.9 % (36.0-48.0); Hemoglobin 11.6 g/dL (12.0-15.0); Lymphocytes # (Auto) 0.95 K/mcL (1.50-4.80); Lymphocytes % (Auto) 9.9 % (15.0-49.0); Mean Cell Volume 100.9 fL (80.0-100.0); Mean Corpuscular HGB Conc 34.2 g/dL (31.0-36.0); Mean Platelet Volume 11.6 fL (7.4-10.4); Monocytes # (Auto) 0.75 K/mcL (0.10-0.90); Monocytes % (Auto) 7.8 % (1.0-12.0); Neutrophils % (Auto) 81.9 % (38.0-78.0); Platelet Count 204 K/mcL (140-440); RBC 3.36 M/mcL (4.00-5.20); Red Cell Distribution Width 13.2 % (11.5-14.5); WBC 9.6 K/mcL (4.5-11.0)
--- NOTE | 2021-02-11 08:55 | XRay Report ---
CLINICAL INFORMATION: pre surgery COMPARISON: 11/16/2020 and 01/04/2021 FINDINGS: Heart is borderline enlarged. Mediastinum and pulmonary vessels are unremarkable. Mild interstitial disease throughout both lungs is compatible with minor interstitial fibrosis. This has been seen on previous exams. There is minor bibasilar scarring or atelectasis. No effusion IMPRESSION: Mild cardiomegaly and mild diffuse interstitial fibrosis with minor bibasilar atelectasis or scarring Interpreted and Authenticated by: Ryan Carlisle 02/11/21
[2021-02-11 10:12] LABS: POC INR 1.1 (0.8-1.2); POC Pro Time 13.3 sec (11.9-14.5)
[2021-02-11 10:25] LABS: ALT/SGPT 12 U/L (<40); AST/SGOT 10 U/L (<32); Albumin 2.7 gm/dL (3.2-5.2); Albumin/Globulin Ratio 0.8 (1.0-2.3); Alkaline Phosphatase 91 U/L (39-117); Bilirubin,Total 0.4 mg/dL (0.1-1.0); Blood Urea Nitrogen 10 mg/dL (8-23); Calcium 8.5 mg/dL (8.6-10.4); Carbon Dioxide 26 mmol/L (22-30); Chloride 100 mmol/L (96-108); Globulin 3.4 gm/dL (2.2-3.7); Glomerular Filtration Rate 108; Glucose 107 mg/dL (70-105)
[2021-02-11] MEDS ORDERED: ONDANSETRON 4 MG ODT TABLET SL PRN ×2 (11:02→11:47)
[2021-02-11] MEDS ORDERED: MAGNESIUM SULFATE 2 GM/50 ML BAG IV PRN (11:02)
[2021-02-11] MEDS ORDERED: ACETAMINOPHEN 325 MG TABLET PO PRN ×2 (11:02→11:47)
[2021-02-11] MEDS ORDERED: BISACODYL 10 MG SUPP.RECT PR PRN (11:02)
[2021-02-11] MEDS ORDERED: ACETAMINOPHEN 650 MG/65 ML BAG IV PRN (11:02)
[2021-02-11] MEDS ORDERED: POLYETHYLENE GLYCOL 3350 17 GM PACKET PO PRN ×2 (11:02→11:36)
[2021-02-11] MEDS ORDERED: ONDANSETRON 4 MG/2 ML VIAL IV PRN ×3 (11:02→12:46)
[2021-02-11] MEDS ORDERED: POTASSIUM CHLORIDE 40 MEQ in DEXTROSE 5% IN WATER 500 ML IV PRN (11:02)
[2021-02-11] MEDS ORDERED: SCOPOLAMINE 1 PATCH PATCH TOPICAL PRN (11:23)
[2021-02-11] MEDS ORDERED: IPRATROPIUM/ALBUTEROL 3 ML AMPUL.NEB NEB PRN ×2 (11:23→12:46)
[2021-02-11] MEDS ORDERED: MAGNESIUM HYDROXIDE 30 ML ORAL.SUSP PO PRN (11:36)
[2021-02-11] MEDS ORDERED: BENZOCAINE/MENTHOL 1 LOZENGE PO PRN (11:36)
[2021-02-11] MEDS ORDERED: FLEETS ADULT ENEMA PR PRN (11:36)
[2021-02-11] MEDS ORDERED: 0.9 % SODIUM CHLORIDE 10 ML SYRINGE IV ONE (11:46)
[2021-02-11] MEDS ORDERED: ceFAZolin 2 GM in DEXTROSE 5% IN WATER 50 ML IV SCH (12:00)
[2021-02-11] MEDS ORDERED: TRANEXAMIC ACID 1,000 MG/10 ML VIAL IV ONE (12:05)
[2021-02-11] MEDS ORDERED: MIDAZOLAM 5 MG/5 ML VIAL ONE (12:05)
[2021-02-11] MEDS ORDERED: ROPIVACAINE HCL/PF 20 ML VIAL IJ ONE (12:05)
[2021-02-11] MEDS ORDERED: METOPROLOL TARTRATE 5 MG/5 ML VIAL IV ONE (12:05)
[2021-02-11] MEDS ORDERED: GLYCOPYRROLATE 0.2 MG/ML VIAL IV ONE (12:05)
[2021-02-11] MEDS ORDERED: HYDROmorphone 1 MG/ML SYRINGE ONE (12:05)
[2021-02-11] MEDS ORDERED: DEXAMETHASONE 10 MG/ML VIAL ONE (12:05)
[2021-02-11] MEDS ORDERED: fentaNYL 250 MCG/5 ML VIAL IV ONE (12:05)
[2021-02-11] MEDS ORDERED: MAGNESIUM SULFATE 4 GM/100 ML BAG IV ONE (12:05)
[2021-02-11] MEDS ORDERED: LIDOCAINE HCL/PF 100 MG/5 ML SYRINGE IV ONE (12:05)
[2021-02-11] MEDS ORDERED: PROPOFOL 200 MG/20 ML VIAL IV ONE (12:05)
[2021-02-11] MEDS ORDERED: KETAMINE 50 MG/ML ML ONE (12:05)
[2021-02-11] MEDS ORDERED: ONDANSETRON 4 MG/2 ML VIAL ONE (12:05)
[2021-02-11] MEDS ORDERED: GENTAMICIN SULFATE 800 MG/20 ML VIAL IR ONE (12:24)
[2021-02-11] MEDS ORDERED: LACTATED RINGERS 250 ML IV PRN (12:46)
[2021-02-11] MEDS ORDERED: PROMETHAZINE 25 MG/ML VIAL IV PRN (12:46)
[2021-02-11] MEDS ORDERED: diphenhydrAMINE 50 MG/ML VIAL IV PRN (12:46)
[2021-02-11] MEDS ORDERED: MEPERIDINE 25 MG/ML VIAL IV PRN (12:46)
[2021-02-11] MEDS ORDERED: morphine 2 MG/ML VIAL IV PRN (12:46)
[2021-02-11] MEDS ORDERED: NALOXONE HCL 0.4 MG/ML VIAL IV PRN (12:46)
[2021-02-11] MEDS ORDERED: fentaNYL 100 MCG/2 ML VIAL IV PRN (12:46)
--- NOTE | 2021-02-11 12:52 | EKG ---
[facility] Test Date: 2021-02-11 Pat Name: Fred Christine Department: ED Room: Gender: Female Driver Messenger: NAM : 1955 Requested By: Naren Camp Order Number: [id number] Reading MD: Joshua Rendon M.D. Measurements Intervals [place] Rate: 104 P: 65 VA: 163 QRS: 50 QRSD: 98 T: 63 QT: 378 QTc: 498 Interpretive Statements Sinus tachycardia Borderline low voltage, extremity leads Borderline prolonged QT interval Baseline wander in lead(s) II,III,aVR,aVL,aVF,V2,V3,V6 Since previous ECG of 12-06-2020, NO CRITERIA FOR APRYL, BORDERLINE TRACING Electronically Signed On 02-11-2021 12:51:48 PDT by Joshua Rendon M.D. /[email or web address]/[email or web address]/[id number]
[2021-02-11] MEDS ORDERED: LACTATED RINGERS 1,000 ML IV SCH (13:00)
[2021-02-11] MEDS ORDERED: LIDOCAINE 1% 20 ML VIAL SQ ONE (13:14)
[2021-02-11] MEDS ORDERED: BUPIVACAINE W/EPI 0.25% 50 ML VIAL IJ ONE (13:15)
--- NOTE | 2021-02-11 13:23 | Brief Operative Note ---
Brief Operative Note Date of procedure: 02/11/21 Pre-op diagnosis: Left femoral neck fracture Post-op diagnosis: same Procedure: Left hip bipolar arthroplasty Grafts/Implants: Yes Anesthesia: GETA Findings: as above fracture of femoral neck Complications: none Surgeon: Arik Geronimo Coremaker Machine: Alo Mccauley Estimated blood loss (cc): 500 Specimens Removed/Pathology: none sent Condition: stable Disposition: PACU
--- NOTE | 2021-02-11 13:32 | Operative Note ---
Operative Note Operative Note: Pre-operative diagnosis: Left femoral neck fracture Postoperative diagnosis: Same Procedure: Left hip bipolar hemiarthroplasty Implants: [employer] Actis size 3 standard stem, 46 x 28 mm bipolar head with +5 mm neck standard offset Findings: As above femoral neck fracture Complications: None Estimated Blood loss: 500 cc Assist: Alo Mccauley whose assistance was critical to the safety and efficacy of the procedure. DOS: February 11, 2021 Clinical note: The patient continues to suffer from the above mentioned diagnosis. She had a fall at home and could not ambulate. She was brought to the emergency department where she was diagnosed with the above-mentioned femoral neck fracture. Surgery in the form of hip hemiarthroplasty was offered to the patient to allow her to ambulate more quickly. The patient consented the procedure aware and understanding of the risk. H&P: The patient was met outside the operating room and symptoms were reviewed and a physical exam performed. The patient demonstrated ongoing symptoms and signs as previously discussed. Risk versus benefits of the procedure were again discussed. Patient wished to proceed with the surgery aware and understanding of these risks. The operative site was marked. The patient was brought into the operating room and positioned in the usual fashion lateral with all bony prominences padded. A lateral approach was used. An incision was made directly over the GT extending proximally and distally by approximately 10 cm, then through IT band. Next the abductors were lifted in the usual 1/3-2/3 split fashion. Next the capsule was split. The hip was dislocated anteriorly. This revealed the fractured femoral head and neck in the acetabulum. The proximal aspect of the femur was then exposed using Hohmann retractors. The remainder of neck was removed with an oscillating saw. The femoral head was removed with a corkscrew. The acetabulum was inspected for any debris and this was removed. The proximal aspect of the femur was opened with a box osteotome. We then sequentially broached larger sizes until good fit within the femoral canal was achieved with the size noted above. A trial reduction was performed with a trial head. This reduced easily, providing equal leg lengths as could be determined by measuring through the drape.stability of the hip was assessed and was determined to be stable in flexion adduction and extension and external rotation. With the 2 thighs parallel, the knee was able to be flexed to 90 degrees with appropriate tension. The trial was then dislocated. The wound and canal were thoroughly irrigated. The trial was exchanged with a definitive component. Again the hip was reduced. Stability and tension were again checked and found to be satisfactory, and we confirmed that the hip did not dislocate and the legs leg lengths were equal. The capsule and abductors were closed with 2.0 fiberwire. The IT band was closed with #1 vicryl followed by 2.0 vicryl for the subcutaneous layers and felicia for skin. A sterile dressing was applied. The patient was brought to PACU in good condition. They can be weightbearing as tolerated. Dressing can be changed postop day 7. They can follow-up with orthopedics in 10 to 14 days time for wound check and staple removal. If not discharged from hospital at that time felicia can be removed and follow-up can be postponed till 6 weeks postoperatively with orthopedics.
--- NOTE | 2021-02-11 13:43 | Orthopedic Consult Note ---
HPI Data of Consult Patient: new to practice Consult date: 02/11/21 Primary Care Provider: Alexx Caro MD Consult Narrative Chief complaint: Left hip fracture Reason for consult: Same History of present illness: Patient suffered a fall last night and was unable to ambulate. She is brought to the emergency room where she was diagnosed with a left femoral neck fracture. Surgery in the form of a left hip hemiarthroplasty was offered to the patient to give her the best chance to ambulate as soon as possible. She has history of alcoholism and COPD but is otherwise. She lives independently at home. cc:: CC: Dajuan Aguilar Review of Systems Review of systems: 10 point review systems was performed was found to be normal step as noted in the HPI performed in the emergency department. Of note with regards to orthopedic injury or left leg was held in slight flexion with any attempt at movement causing significant pain. She is neurovascular intact in her foot. PFSH PFSH All Active Problems (Updated 02/11/21 @ 06:58 by Levy Joshua MD) Closed fracture of left hip (Acute) Fall (Acute) Lower extremity edema (Acute) Hallucinations (Acute) Dorsalgia of thoracolumbar region (Acute) Weakness generalized (Acute) Alcoholic ketoacidosis (Acute) Pneumonia (Acute) Alcohol withdrawal syndrome (Acute) Chest pain, atypical (Acute) Encounter for medical screening examination (Acute) Alcohol abuse (Acute) Macrocytic anemia (Acute) Alcoholism (Acute) Elevated liver enzymes (Acute) Migraine headache (Acute) Left acoustic neuroma (Chronic) Cataracts, bilateral (Acute) Hearing loss in left ear (Acute) Tremor (Chronic) Head injury (Acute) Depression (Acute) Chronic pain (Acute) Opioid use disorder (Acute) Intention tremor (Acute) Acute right hip pain (Acute) Osteoporosis (Acute) Weight loss (Acute) Bilateral lower extremity edema (Acute) Chronic diarrhea (Acute) Goiter (Acute) Tobacco abuse (Acute) Allergic rhinitis (Acute) Reflex sympathetic dystrophy of lower limb (Acute) Reflex sympathetic dystrophy (Acute) Radiculopathy of lumbar region (Acute) Pain in limb (Acute) Macrocytosis (Acute) Insomnia (Acute) Hyperglycemia (Acute) Fatigue (Acute) Postmenopausal atrophic vaginitis (Acute) Asthma (Acute) Medical History (Updated 02/11/21 @ 06:58 by Levy Joshua MD) Acute pain of right knee Allergic rhinitis Asthma Bilateral lower extremity edema Bronchitis Cataracts, bilateral Cholelithiasis and cholecystitis without obstruction Chronic diarrhea Closed fracture of fibula, proximal, right Closed fracture of right tibial plateau Community acquired pneumonia Dehydration Dorsalgia of thoracolumbar region Drug interaction Fatigue Flu vaccine need Foot fracture (~1993) broke all bones in both feet, no surgery done Fracture, radius, distal Goiter Hallucinations Hyperglycemia Insomnia Left acoustic neuroma hearing loss; on MRI 07-17-20; nearly occluding L int aud canal, 2-3 mm size Lower extremity edema Macrocytosis Medicare annual wellness visit, initial Need for shingles vaccine Need for vaccination against Streptococcus pneumoniae using pneumococcal conj ugate vaccine 13 Osteoporosis Pain in limb Persistent cough for 3 weeks or longer Post-op pain Postmenopausal atrophic vaginitis Radiculopathy of lumbar region Reflex sympathetic dystrophy Reflex sympathetic dystrophy of lower limb Sinusitis, acute Strain of lumbar region Swelling of right lower extremity Tobacco abuse Upper respiratory infection Weakness generalized Weight loss Surgical History History of appendectomy History of back surgery (~2014) lumbar disc surgery-2014 History of colonoscopy 2011 & 2018, Sidra Dunn History of laparoscopic cholecystectomy (12/06/19) Family History Mother Diabetes Sister Diabetes Father , age 80 Lung cancer, Onset Age: 80 Emphysema, unspecified Heart disease Myocardial infarction acute Social History marital status: alcohol intake frequency: 0-2 drinks per day substance use type: does not use MEDS/ALLERGIES Home Medications and Allergies Home Medications Medication Instructions Recorded Confirmed Type folic acid 1 mg PO DAILY 12/05/19 01/19/21 History alendronate 70 mg tablet 70 mg PO QWEEK 04/15/20 01/19/21 History cholecalciferol (vitamin D3) 50 50 mcg PO QDAY 04/15/20 01/19/21 History mcg (2,000 unit) capsule prochlorperazine maleate 5 mg 5 mg PO Q6HP PRN #24 tab 08/10/20 01/19/21 Rx tablet sertraline 100 mg tablet 100 mg PO QDAY #30 tab 12/02/20 01/19/21 Rx cefuroxime axetil 500 mg tablet 500 mg PO BID #14 tab 12/21/20 01/19/21 Rx fluticasone 250 mcg-salmeterol 50 1 inh INHALATION BID 12/21/20 01/19/21 History mcg/dose blistr powdr for inhalation ipratropium 0.5 mg-albuterol 3 mg 3 ml INHALATION Q6H PRN 12/21/20 01/19/21 History (2.5 mg base)/3 mL nebulization soln magnesium oxide 400 mg PO BID 12/21/20 01/19/21 History nicotine 21 mg/24 hr daily 1 patch TRANSDERMAL QDAY 12/21/20 01/19/21 History transdermal patch furosemide 20 mg tablet 20 mg PO QAM #30 tab 01/19/21 01/19/21 Rx primidone 50 mg tablet 50 mg PO QHS #30 tab 01/19/21 01/19/21 Rx lisinopril 10 mg tablet 10 mg PO DAILY #30 tab 01/25/21 Rx aspirin 81 mg PO BID #60 tab 02/11/21 Rx buprenorphine-naloxone 1 film SUBLINGUAL DAILY 02/11/21 02/11/21 History furosemide 20 mg PO DAILY 02/11/21 02/11/21 History hydrocodone-acetaminophen 1 tab PO Q6H PRN #60 tab 02/11/21 Rx potassium chloride [Klor-Con M20] 20 meq PO DAILY 02/11/21 02/11/21 History Allergies Allergy/AdvReac Type Severity Reaction Status Date / Time latex Allergy Mild Rash Verified 02/11/21 11:04 A/P Time Spent With Patient Time: Total time spent is greater than 50% in coordination of care (as documented) at patient's floor/unit and/or counseling patient: Impression: Displaced left femoral neck fracture at the level of the mid neck Plan: Left hip bipolar hemiarthroplasty. This was thought to be the most reliable operation to get the patient weightbearing in the shortest period of time. This was discussed with the patient. She understood and agreed with the plan.
[2021-02-11] MEDS: HYDROmorphone 0.5 MG/0.5 ML SYRINGE IV PRN (14:29)
[2021-02-11] MEDS: LACTATED RINGERS 1,000 ML IV SCH (14:29)
[2021-02-11] MEDS: 0.9 % SODIUM CHLORIDE 10 ML SYRINGE IV SCH ×2 (15:15→21:30)
[2021-02-11] MEDS: 0.9 % SODIUM CHLORIDE 1,000 ML IV SCH (15:15)
--- NOTE | 2021-02-11 16:02 | XRay Report ---
CLINICAL INFORMATION: Post op praveena hip COMPARISON: None. FINDINGS: Left hip prostheses is anatomically aligned. No osseous abnormality. Right hip is unremarkable. There is mild bilateral SI degeneration. Moderate L4-5 and L5-S1 degenerative disc disease. Soft tissue swelling seen over the surgical site IMPRESSION: Left hip prostheses in anatomic alignment Interpreted and Authenticated by: Ryan Carlisle 02/11/21
[2021-02-11] MEDS: HYDROCODONE/APAP 7.5/325MG TABLET PO PRN ×2 (17:05→21:28)
[2021-02-11] MEDS: BUDESONIDE 0.5 MG/2 ML AMPUL.NEB NEB SCH (21:16)
[2021-02-11] MEDS: DOCUSATE SODIUM 100 MG CAPSULE PO SCH (21:30)
[2021-02-11] MEDS: SENNOSIDES/DOCUSATE SODIUM 1 TAB TABLET PO SCH (21:30)
[2021-02-12] MEDS: KETOROLAC 15 MG/ML VIAL IV PRN ×3 (00:38→19:10)
[2021-02-12] MEDS: MELATONIN 3 MG TABLET PO PRN ×2 (00:39→21:29)
[2021-02-12] MEDS: LACTATED RINGERS 1,000 ML IV SCH (00:39)
[2021-02-12] MEDS: HYDROCODONE/APAP 7.5/325MG TABLET PO PRN ×5 (01:35→21:28)
[2021-02-12] MEDS: 0.9 % SODIUM CHLORIDE 10 ML SYRINGE IV SCH ×4 (05:01→22:16)
[2021-02-12 06:58] LABS: Basophils # (Auto) 0.03 K/mcL (0.00-0.20); Basophils % (Auto) 0.3 % (0.0-2.0); Eosinophils # (Auto) 0.07 K/mcL (0.00-0.70); Eosinophils % (Auto) 0.6 % (0.0-7.0); Hematocrit 35.1 % (36.0-48.0); Hemoglobin 11.3 g/dL (12.0-15.0); Lymphocytes # (Auto) 1.51 K/mcL (1.50-4.80); Lymphocytes % (Auto) 13.3 % (15.0-49.0); Mean Cell Volume 101.2 fL (80.0-100.0); Mean Corpuscular HGB Conc 32.2 g/dL (31.0-36.0); Mean Platelet Volume 11.4 fL (7.4-10.4); Monocytes # (Auto) 0.88 K/mcL (0.10-0.90); Monocytes % (Auto) 7.7 % (1.0-12.0); Neutrophils % (Auto) 78.1 % (38.0-78.0); Platelet Count 191 K/mcL (140-440); RBC 3.47 M/mcL (4.00-5.20); Red Cell Distribution Width 13.5 % (11.5-14.5); WBC 11.4 K/mcL (4.5-11.0)
[2021-02-12 07:24] LABS: ALT/SGPT 11 U/L (<40); AST/SGOT 14 U/L (<32); Albumin 2.6 gm/dL (3.2-5.2); Albumin/Globulin Ratio 0.7 (1.0-2.3); Alkaline Phosphatase 84 U/L (39-117); Bilirubin,Direct < 0.2 mg/dL (0-0.3); Bilirubin,Total 0.4 mg/dL (0.1-1.0); Blood Urea Nitrogen 17 mg/dL (8-23); Calcium 8.3 mg/dL (8.6-10.4); Carbon Dioxide 26 mmol/L (22-30); Chloride 103 mmol/L (96-108); Globulin 3.5 gm/dL (2.2-3.7); Glomerular Filtration Rate 95; Glucose 102 mg/dL (70-105); Lactate Dehydrogenase 210 U/L (135-225); Triglycerides 61 mg/dL (<150); Uric Acid 4.4 mg/dL (2.5-8.0)
[2021-02-12 07:46] LABS: INR 1.1 (0.9-1.1); Prothrombin Time 14.8 sec (11.9-14.5)
[2021-02-12] MEDS: MULTIVIT,THER IRON,CA,FA & MIN 1 TABLET PO SCH (07:57)
[2021-02-12] MEDS: DOCUSATE SODIUM 100 MG CAPSULE PO SCH ×2 (07:57→19:10)
[2021-02-12] MEDS: THIAMINE 100 MG TABLET PO SCH (07:58)
[2021-02-12] MEDS: ENOXAPARIN 40 MG/0.4 ML SYRINGE SQ SCH (07:59)
[2021-02-12] MEDS: BUDESONIDE 0.5 MG/2 ML AMPUL.NEB NEB SCH ×2 (09:02→21:42)
[2021-02-12] MEDS: IPRATROPIUM/ALBUTEROL 3 ML AMPUL.NEB NEB PRN (09:02)
[2021-02-12] MEDS: 0.9 % SODIUM CHLORIDE 1,000 ML IV SCH (09:24)
[2021-02-12] MEDS: HYDROmorphone 0.5 MG/0.5 ML SYRINGE IV PRN (10:10)
--- NOTE | 2021-02-12 10:14 | Orthopedic Progress Note ---
SUBJECTIVE Subjective Patient information: Note initiated : 02/12/21 at 10:09 am Service Date, if different from initiated Date: [] Patient: Fred Christine 65 y/o F admitted on 02/11/21 for fall. Chief Complaint: [left hip pain] Interval history: Patient is feeling well this morning and participating in PT. She has pain in the left hip improved by her pain medicine. She is otherwise feeling well. She denies any CP, THAO, nausea, vomiting, fever, or any other acute symptoms. Constitutional Vitals: Vital Signs Temp Pulse Resp BP Pulse Ox 97.5 F 86 20 102/55 92 02/12/21 07:39 02/12/21 09:12 02/12/21 09:51 02/12/21 09:51 02/12/21 09:51 Period Temp Pulse Resp BP Sys/Bartlett Pulse Ox Last 24 Hr 97.4 F-98.8 F 77-111 12-21 88-127/51-72 90-100 Intake and Output 02/11/21 02/12/21 02/12/21 21:59 05:59 13:59 Intake Total 0 763 Output Total 800 575 Balance -800 188 Weight 113 lb Intake & Output: Intake & Output 02/11/21 02/12/21 02/12/21 21:59 05:59 13:59 Intake Total 0 763 Output Total 800 575 Balance -800 188 Weight 113 lb Intake: IV 763 Lactated Ringers 1,000 ml @ 75 763 mls/hr IV .[id number] [facility] Rx#: [id number] Oral 0 Output: Urine Catheter Amount 550 575 Void Amount 250 Other: Urine Appearance Clear Clear Uretheral (Dotson) Clear Urine Color Bright Yellow Dark Yellow Uretheral (Dotson) Bright Yellow Urine Odor Normal Uretheral (Dotson) Normal OBJ DATA Labs CBC & Chem 7: 02/12/21 05:43 02/12/21 05:43 Labs: Abnormal Lab Results 02/12/21 02/12/21 02/12/21 05:43 05:43 05:43 WBC 11.4 H RBC 3.47 L Hgb 11.3 L Hct 35.1 L MCV 101.2 H MCH MPV 11.4 H Neut % (Auto) 78.1 H Lymph % (Auto) 13.3 L Lymph # (Auto) Absolute Neutrophils 8.87 H PT 14.8 H Anion Gap 6.0 L Creatinine Glucose Calcium 8.3 L Albumin 2.6 L Albumin/Globulin Ratio 0.7 L 02/11/21 02/11/21 09:23 07:30 WBC RBC 3.36 L Hgb 11.6 L Hct 33.9 L MCV 100.9 H MCH 34.5 H MPV 11.6 H Neut % (Auto) 81.9 H Lymph % (Auto) 9.9 L Lymph # (Auto) 0.95 L Absolute Neutrophils PT Anion Gap 7.0 L Creatinine 0.4 L Glucose 107 H Calcium 8.5 L Albumin 2.7 L Albumin/Globulin Ratio 0.8 L Meds: Medications Acetaminophen (Acetaminophen 325 Mg Tablet) 650 mg PO Q6HP PRN; Protocol PRN Reason: Per Pain Protocol/Fever > 101 Hydrocodone Bitart/Acetaminophen (Hydrocodone/Apap 7.5/325mg Tablet) 0 tab PO Q4HP PRN; Protocol PRN Reason: Per Pain Protocol Last Admin: 02/12/21 06:17 Dose: 2 tab Documented by: Albuterol/Ipratropium (Ipratropium/Albuterol 3 Ml Ampul.Neb) 3 ml NEB Q4HP PRN PRN Reason: Shortness Of Breath Last Admin: 02/12/21 09:02 Dose: 3 ml Documented by: Bisacodyl (Bisacodyl 10 Mg Supp.Rect) 10 mg [place] Q2-3DAYS PRN PRN Reason: Constipation Budesonide (Budesonide 0.5 Mg/2 Ml Ampul.Neb) 0.5 mg NEB Q12 [facility] Last Admin: 02/12/21 09:02 Dose: 0.5 mg Documented by: Docusate Sodium (Docusate Sodium 100 Mg Capsule) 100 mg PO BID [facility] Last Admin: 02/12/21 07:57 Dose: 100 mg Documented by: Enoxaparin Sodium (Enoxaparin 40 Mg/0.4 Ml Syringe) 40 mg SQ DAILY [facility] Last Admin: 02/12/21 07:59 Dose: 40 mg Documented by: Hydromorphone HCl (Hydromorphone 0.5 Mg/0.5 Ml Syringe) 0.25 - 0.5 mg IV Q4HP PRN; Protocol PRN Reason: Per Pain Protocol Last Admin: 02/11/21 14:29 Dose: 0.5 mg Documented by: Potassium Chloride 40 meq/ (Dextrose) 520 mls @ 130 mls/hr IV UD PRN PRN Reason: K+ = or < 3.5 Acetaminophen (Ofirmev) 650 mg in 65 mls @ 130 mls/hr IV Q6HP PRN; Protocol PRN Reason: Per Pain Protocol/Fever > 101 Magnesium Sulfate (Magnesium Sulfate) 2 gm in 50 mls @ 50 mls/hr IV UD PRN PRN Reason: MG = or < 1.7 Sodium Chloride (Sodium Chloride 0.9%) 1,000 mls @ 50 mls/hr IV .Q20H [facility] Stop: 02/13/21 23:01 Last Admin: 02/12/21 09:24 Dose: Not Given Documented by: Lactated Ringer's (Lactated Ringers) 1,000 mls @ 75 mls/hr IV .[id number] [facility] Last Admin: 02/12/21 00:39 Dose: 75 mls/hr Documented by: Iron Carb/Multivit/Club Concierge/Folic Acid (Multivit,Ther Iron,Ca,Fa & Min 1 Tablet) 1 tab PO DAILY [facility] Last Admin: 02/12/21 07:57 Dose: 1 tab Documented by: Ketorolac Tromethamine (Ketorolac 15 Mg/Ml Vial) 15 mg IV Q6HP PRN; Protocol PRN Reason: Per Pain Protocol Stop: 02/13/21 11:47 Last Admin: 02/12/21 07:58 Dose: 15 mg Documented by: Magnesium Hydroxide (Magnesium Hydroxide 30 Ml Oral.Susp) 30 ml PO BIDP PRN PRN Reason: Constipation Melatonin (Melatonin 3 Mg Tablet) 3 mg PO HSP PRN PRN Reason: Insomnia Last Admin: 02/12/21 00:39 Dose: 3 mg Documented by: Ondansetron HCl (Ondansetron 4 Mg Odt Tablet) 4 mg SL Q4-6HP PRN; Protocol PRN Reason: Nausea And Vomiting Ondansetron HCl (Ondansetron 4 Mg/2 Ml Vial) 4 mg IV Q4-6HP PRN; Protocol PRN Reason: Nausea And Vomiting Ondansetron HCl (Ondansetron 4 Mg/2 Ml Vial) 4 mg IV Q4HP PRN; Protocol PRN Reason: Nausea And Vomiting Ondansetron HCl (Ondansetron 4 Mg Odt Tablet) 4 mg SL Q4HP PRN; Protocol PRN Reason: Nausea And Vomiting Polyethylene Glycol (Polyethylene Glycol 3350 17 Gm Packet) 17 gm PO DAILYP PRN PRN Reason: Constipation Polyethylene Glycol (Polyethylene Glycol 3350 17 Gm Packet) 17 gm PO DAILYP PRN PRN Reason: Constipation Senna/Docusate Sodium (Sennosides/Docusate Sodium 1 Tab Tablet) 1 tab PO HS [facility] Last Admin: 02/11/21 21:30 Dose: Not Given Documented by: Sodium Biphosphate/Sodium Phosphate (Fleets Adult Enema) 1 dose [place] Q3-4DAYS PRN PRN Reason: Constipation Sodium Chloride (0.9 % Sodium Chloride 10 Ml Syringe) 10 ml IV Q8 [facility] Last Admin: 02/12/21 05:01 Dose: Not Given Documented by: Thiamine HCl (Thiamine 100 Mg Tablet) 100 mg PO DAILY [facility] Last Admin: 02/12/21 07:58 Dose: 100 mg Documented by: Throat Lozenges (Benzocaine/Menthol 1 Lozenge) 1 lozenge PO PRN PRN PRN Reason: Sore Throat A/P Assessment and plan (1) History of left hip hemiarthroplasty: Status: Acute Comment: POD 1 from left hip Hemiarthroplasty 1. continue PT and use walker at all times 2. continue post op pain protocol 3. Plan for discharge to SNF in next 1-2 days per hospitalist 4. ASA 81 mg bid for next 30 days for dvt prophylaxis 5. Follow up with [facility] in 14 days for staple removal 6. Leave silver dressing in place until POD 7 Ortho signing off, contact Dr. Geronimo for questions. Thank you for your help Time Spent With Patient Time: Total time spent is greater than 50% in coordination of care (as documented) at patient's floor/unit and/or counseling patient:
--- NOTE | 2021-02-12 15:30 | Internal Med Progress Note ---
SUBJECTIVE Subjective Patient information: Note initiated : 02/12/21 at 3:29 pm Service Date, if different from initiated Date: [] Patient: Fred Christine a 65 y/o F admitted on 02/11/21 for fall. Chief Complaint: Follow-up hip fracture Interval history Ms. Christine is a 65 year old F with a history of alcoholism , active smoker, anemia/hypertension/anxiety who presents to the ER complaining of hip pain following a fall this morning after she tripped and landed on her left hip early this morning and was on the floor for a few hours. Initial work-up in the ER was consistent with left hip fracture. Dr. Geronimo orthopedics was consulted and recommended hospitalization and surgical intervention. Subsequently hospitalist service was consulted to facilitate the process. At the time of my evaluation patient is alert and oriented. She is currently on 3 to 4 days oxygen due to significant pain in holding her breath. She however denies recent fever, chills, Covid symptoms, exposure to sick contacts, yellow productive sputum. She continues to drink alcohol regularly. She denies weakne ss following fall, lightheadedness, dizziness, loss of consciousness, urinary incontinence or unilateral sensation loss. 02/12doing well postop. Some pain associated with the fracture and ORIF. Wor ked with physical therapy. Appetite okay. Remains on O2, attempting to wean postoperatively. Goal SaO2 92%. Requested nicotine patch. Constitutional Vitals: Vital Signs Temp Pulse Resp BP Pulse Ox 97.8 F 83 16 108/63 95 02/12/21 11:11 02/12/21 11:11 02/12/21 11:11 02/12/21 11:11 02/12/21 11:11 Period Temp Pulse Resp BP Sys/Bartlett Pulse Ox Last 24 Hr 97.5 F-98.6 F 78-89 12-20 93-118/54-72 92-98 Intake and Output 02/12/21 02/12/21 02/12/21 05:59 13:59 21:59 Intake Total 763 1000 240 Output Total 575 Balance 188 1000 240 GENERAL: Sitting up in bed no acute distress RESPIRATORY: Mildly diminished, clear, unlabored CARDIOVASCULAR: Regular rate and rhythm ABDOMEN: Soft, nontender EXTREMITIES: Incision intact left hip, limb is neurovascularly intact, no edema NEURO: Alert, oriented x3, moves all extremities equally Intake & Output: Intake & Output 02/12/21 02/12/21 02/12/21 05:59 13:59 21:59 Intake Total 763 1000 240 Output Total 575 Balance 188 1000 240 Intake: IV 763 1000 Lactated Ringers 1,000 ml @ 75 763 1000 mls/hr IV .[id number] JENNY Rx#: [id number] Oral 240 Output: Urine Catheter Amount 575 Other: Meal Lunch Percent of Meal Consumed 25% Feeding Ability Independent Urine Appearance Clear Urine Color Dark Yellow Urine Odor Normal OBJ DATA Labs CBC & Chem 7: 02/12/21 05:43 02/12/21 05:43 Labs: Abnormal Lab Results 02/12/21 02/12/21 02/12/21 05:43 05:43 05:43 WBC 11.4 H RBC 3.47 L Hgb 11.3 L Hct 35.1 L MCV 101.2 H MCH MPV 11.4 H Neut % (Auto) 78.1 H Lymph % (Auto) 13.3 L Lymph # (Auto) Absolute Neutrophils 8.87 H PT 14.8 H Anion Gap 6.0 L Creatinine Glucose Calcium 8.3 L Albumin 2.6 L Albumin/Globulin Ratio 0.7 L 02/11/21 02/11/21 09:23 07:30 WBC RBC 3.36 L Hgb 11.6 L Hct 33.9 L MCV 100.9 H MCH 34.5 H MPV 11.6 H Neut % (Auto) 81.9 H Lymph % (Auto) 9.9 L Lymph # (Auto) 0.95 L Absolute Neutrophils PT Anion Gap 7.0 L Creatinine 0.4 L Glucose 107 H Calcium 8.5 L Albumin 2.7 L Albumin/Globulin Ratio 0.8 L Meds: Medications Acetaminophen (Acetaminophen 325 Mg Tablet) 650 mg PO Q6HP PRN; Protocol PRN Reason: Per Pain Protocol/Fever > 101 Hydrocodone Bitart/Acetaminophen (Hydrocodone/Apap 7.5/325mg Tablet) 0 tab PO Q4HP PRN; Protocol PRN Reason: Per Pain Protocol Last Admin: 02/12/21 12:36 Dose: 2 tab Documented by: Albuterol/Ipratropium (Ipratropium/Albuterol 3 Ml Ampul.Neb) 3 ml NEB Q4HP PRN PRN Reason: Shortness Of Breath Last Admin: 02/12/21 09:02 Dose: 3 ml Documented by: Bisacodyl (Bisacodyl 10 Mg Supp.Rect) [address] Q2-3DAYS PRN PRN Reason: Constipation Budesonide (Budesonide 0.5 Mg/2 Ml Ampul.Neb) 0.5 mg NEB Q12 [facility] Last Admin: 02/12/21 09:02 Dose: 0.5 mg Documented by: Docusate Sodium (Docusate Sodium 100 Mg Capsule) 100 mg PO BID [facility] Last Admin: 02/12/21 07:57 Dose: 100 mg Documented by: Enoxaparin Sodium (Enoxaparin 40 Mg/0.4 Ml Syringe) 40 mg SQ DAILY [facility] Last Admin: 02/12/21 07:59 Dose: 40 mg Documented by: Hydromorphone HCl (Hydromorphone 0.5 Mg/0.5 Ml Syringe) 0.25 - 0.5 mg IV Q4HP PRN; Protocol PRN Reason: Per Pain Protocol Last Admin: 02/12/21 10:10 Dose: 0.5 mg Documented by: Potassium Chloride 40 meq/ (Dextrose) 520 mls @ 130 mls/hr IV UD PRN PRN Reason: K+ = or < 3.5 Acetaminophen (Ofirmev) 650 mg in 65 mls @ 130 mls/hr IV Q6HP PRN; Protocol PRN Reason: Per Pain Protocol/Fever > 101 Magnesium Sulfate (Magnesium Sulfate) 2 gm in 50 mls @ 50 mls/hr IV UD PRN PRN Reason: MG = or < 1.7 Iron Carb/Multivit/Informatics Coordinator/Folic Acid (Multivit,Ther Iron,Ca,Fa & Min 1 Tablet) 1 tab PO DAILY [facility] Last Admin: 02/12/21 07:57 Dose: 1 tab Documented by: Ketorolac Tromethamine (Ketorolac 15 Mg/Ml Vial) 15 mg IV Q6HP PRN; Protocol PRN Reason: Per Pain Protocol Stop: 02/13/21 11:47 Last Admin: 02/12/21 07:58 Dose: 15 mg Documented by: Magnesium Hydroxide (Magnesium Hydroxide 30 Ml Oral.Susp) 30 ml PO BIDP PRN PRN Reason: Constipation Melatonin (Melatonin 3 Mg Tablet) 3 mg PO HSP PRN PRN Reason: Insomnia Last Admin: 02/12/21 00:39 Dose: 3 mg Documented by: Ondansetron HCl (Ondansetron 4 Mg Odt Tablet) 4 mg SL Q4-6HP PRN; Protocol PRN Reason: Nausea And Vomiting Ondansetron HCl (Ondansetron 4 Mg/2 Ml Vial) 4 mg IV Q4-6HP PRN; Protocol PRN Reason: Nausea And Vomiting Polyethylene Glycol (Polyethylene Glycol 3350 17 Gm Packet) 17 gm PO DAILYP PRN PRN Reason: Constipation Senna/Docusate Sodium (Sennosides/Docusate Sodium 1 Tab Tablet) 1 tab PO HS [facility] Last Admin: 02/11/21 21:30 Dose: Not Given Documented by: Sodium Biphosphate/Sodium Phosphate (Fleets Adult Enema) [address] Q3-4DAYS PRN PRN Reason: Constipation Sodium Chloride (0.9 % Sodium Chloride 10 Ml Syringe) 10 ml IV Q8 [facility] Last Admin: 02/12/21 13:16 Dose: Not Given Documented by: Thiamine HCl (Thiamine 100 Mg Tablet) 100 mg PO DAILY [facility] Last Admin: 02/12/21 07:58 Dose: 100 mg Documented by: Throat Lozenges (Benzocaine/Menthol 1 Lozenge) 1 lozenge PO PRN PRN PRN Reason: Sore Throat A/P Narrative A/P Narrative: Apfle-tau-awqp-old female who presents after ground-level fall found to have left femoral neck fracture. Left femoral neck fracture: Postop day #1 status post left hip hemiarthroplasty -Tolerated procedure well Acute hypoxic respiratory failure -Mild hypoxia, requiring 3 LPM -Suspect due in part to underlying chronic lung disease (no formal diagnosis of COPD, but prolonged smoking history) Probable COPD -Has nebulizer at home since she was hospitalized with pneumonia -Does not appear to have a formal diagnosis of COPD, though likely has noted Hypertension -On FITO inhibitor at home, holding in the perioperative period Tobacco abuse -Nicotine patch History of alcohol abuse -History of mild withdrawal -None for the past few months Plan: -PT and postop activity as per orthopedics -Wean oxygen as able -Resume home antihypertensives when blood pressure approaches hypertensive level -Continue nicotine patch -Monitor for any withdrawal phenomenon -Continue with bronchodilators, consider inhaled corticosteroid -DVT prophylaxis as per orthopedics Time Spent With Patient Time: Total time spent is greater than 50% in coordination of care (as docume nted) at patient's floor/unit and/or counseling patient: Total time spent with greater than 50% in coordination of care (as documented) at patient's floor/unit and/or counseling patient:: 25 - 35 minutes QUALITY Stroke Symptom Onset Unknown: No VTE Deep Vein Thrombosis/Pulmonary Embolism Present on Admission: No
[2021-02-12] MEDS: SENNOSIDES/DOCUSATE SODIUM 1 TAB TABLET PO SCH (19:10)
[2021-02-13] MEDS: KETOROLAC 15 MG/ML VIAL IV PRN (00:40)
[2021-02-13] MEDS: HYDROCODONE/APAP 7.5/325MG TABLET PO PRN ×5 (03:48→20:40)
[2021-02-13] MEDS: 0.9 % SODIUM CHLORIDE 10 ML SYRINGE IV SCH ×3 (06:01→22:28)
[2021-02-13 07:12] LABS: Basophils # (Auto) 0.03 K/mcL (0.00-0.20); Basophils % (Auto) 0.4 % (0.0-2.0); Eosinophils # (Auto) 0.15 K/mcL (0.00-0.70); Eosinophils % (Auto) 1.9 % (0.0-7.0); Hematocrit 31.6 % (36.0-48.0); Hemoglobin 10.3 g/dL (12.0-15.0); Lymphocytes # (Auto) 1.32 K/mcL (1.50-4.80); Lymphocytes % (Auto) 16.8 % (15.0-49.0); Mean Cell Volume 103.6 fL (80.0-100.0); Mean Corpuscular HGB Conc 32.6 g/dL (31.0-36.0); Mean Platelet Volume 11.7 fL (7.4-10.4); Monocytes # (Auto) 0.63 K/mcL (0.10-0.90); Neutrophils % (Auto) 72.9 % (38.0-78.0); Platelet Count 169 K/mcL (140-440); RBC 3.05 M/mcL (4.00-5.20); Red Cell Distribution Width 13.7 % (11.5-14.5); WBC 7.8 K/mcL (4.5-11.0)
[2021-02-13 07:28] LABS: ALT/SGPT 11 U/L (<40); AST/SGOT 14 U/L (<32); Albumin 2.7 gm/dL (3.2-5.2); Albumin/Globulin Ratio 0.9 (1.0-2.3); Alkaline Phosphatase 77 U/L (39-117); Bilirubin,Direct < 0.2 mg/dL (0-0.3); Bilirubin,Total 0.4 mg/dL (0.1-1.0); Blood Urea Nitrogen 19 mg/dL (8-23); Calcium 8.2 mg/dL (8.6-10.4); Carbon Dioxide 26 mmol/L (22-30); Chloride 105 mmol/L (96-108); Globulin 3.1 gm/dL (2.2-3.7); Glomerular Filtration Rate 100; Glucose 92 mg/dL (70-105); Lactate Dehydrogenase 204 U/L (135-225); Phosphorous 2.7 mg/dL (2.5-4.5); Triglycerides 71 mg/dL (<150); Uric Acid 4.6 mg/dL (2.5-8.0)
[2021-02-13 07:51] LABS: INR 1.1 (0.9-1.1); Prothrombin Time 14.5 sec (11.9-14.5)
[2021-02-13] MEDS: ENOXAPARIN 40 MG/0.4 ML SYRINGE SQ SCH (08:29)
[2021-02-13] MEDS: DOCUSATE SODIUM 100 MG CAPSULE PO SCH ×2 (08:30→20:40)
[2021-02-13] MEDS: THIAMINE 100 MG TABLET PO SCH (08:30)
[2021-02-13] MEDS: MULTIVIT,THER IRON,CA,FA & MIN 1 TABLET PO SCH (08:30)
[2021-02-13] MEDS: IPRATROPIUM/ALBUTEROL 3 ML AMPUL.NEB NEB PRN (08:52)
[2021-02-13] MEDS: BUDESONIDE 0.5 MG/2 ML AMPUL.NEB NEB SCH ×2 (08:52→21:38)
[2021-02-13] MEDS: NICOTINE 14 MG PATCH TOPICAL SCH (09:36)
--- NOTE | 2021-02-13 10:52 | Orthopedic Progress Note ---
SUBJECTIVE Subjective Patient information: Note initiated : 02/13/21 at 10:48 am Service Date, if different from initiated Date: [] Patient: Fred Christine 65 y/o F admitted on 02/11/21 for fall. Chief Complaint: Left hip praveena-arthroplasty for femoral neck fracture Sitting up in chair. In good spirits. Complains of pain but controlled with PO medication. A+Ox3 NVI in foot Wound CDI. Constitutional Vitals: Vital Signs Temp Pulse Resp BP Pulse Ox 98.7 F 101 H 16 99/57 91 02/13/21 07:23 02/13/21 09:05 02/13/21 09:05 02/13/21 07:23 02/13/21 08:52 Period Temp Pulse Resp BP Sys/Bartlett Pulse Ox Last 24 Hr 97.8 F-99.7 F 82-102 - 88-130/47-64 88-95 Intake and Output 02/12/21 02/13/21 02/13/21 21:59 05:59 13:59 Intake Total 240 480 240 Output Total 300 700 Balance -60 -220 240 Weight 125 lb Intake & Output: Intake & Output 02/12/21 02/13/21 02/13/21 21:59 05:59 13:59 Intake Total 240 480 240 Output Total 300 700 Balance -60 -220 240 Weight 125 lb Intake: Oral 240 480 240 Output: Urine Catheter Amount 700 Void Amount 250 Urine/Stool Mix 50 Other: Meal Lunch Breakfast Percent of Meal Consumed 25% 100% Feeding Ability Independent Independent Urine Appearance Clear Clear Urine Color Dark Yellow Dark Yellow Urine Odor Strong Normal Stool Size Small Stool Color Dark Red Blood Stool Consistency Liquid OBJ DATA Labs CBC & Chem 7: 02/13/21 05:28 02/13/21 05:27 Labs: Abnormal Lab Results 02/13/21 02/13/21 02/12/21 05:28 05:27 05:43 WBC RBC 3.05 L Hgb 10.3 L Hct 31.6 L MCV 103.6 H MCH MPV 11.7 H Neut % (Auto) Lymph % (Auto) Lymph # (Auto) 1.32 L Absolute Neutrophils PT 14.8 H Anion Gap Creatinine 0.5 L Glucose Calcium 8.2 L Total Protein 5.8 L Albumin 2.7 L Albumin/Globulin Ratio 0.9 L 07/02/12/21 02/11/21 05:43 05:43 09:23 WBC 11.4 H RBC 3.47 L Hgb 11.3 L Hct 35.1 L MCV 101.2 H MCH MPV 11.4 H Neut % (Auto) 78.1 H Lymph % (Auto) 13.3 L Lymph # (Auto) Absolute Neutrophils 8.87 H PT Anion Gap 6.0 L 7.0 L Creatinine 0.4 L Glucose 107 H Calcium 8.3 L 8.5 L Total Protein Albumin 2.6 L 2.7 L Albumin/Globulin Ratio 0.7 L 0.8 L 02/11/21 07:30 WBC RBC 3.36 L Hgb 11.6 L Hct 33.9 L MCV 100.9 H MCH 34.5 H MPV 11.6 H Neut % (Auto) 81.9 H Lymph % (Auto) 9.9 L Lymph # (Auto) 0.95 L Absolute Neutrophils PT Anion Gap Creatinine Glucose Calcium Total Protein Albumin Albumin/Globulin Ratio Meds: Medications Acetaminophen (Acetaminophen 325 Mg Tablet) 650 mg PO Q6HP PRN; Protocol PRN Reason: Per Pain Protocol/Fever > 101 Hydrocodone Bitart/Acetaminophen (Hydrocodone/Apap 7.5/325mg Tablet) 0 tab PO Q4HP PRN; Protocol PRN Reason: Per Pain Protocol Last Admin: 02/13/21 08:30 Dose: 2 tab Documented by: Albuterol/Ipratropium (Ipratropium/Albuterol 3 Ml Ampul.Neb) 3 ml NEB Q4HP PRN PRN Reason: Shortness Of Breath Last Admin: 02/13/21 08:52 Dose: 3 ml Documented by: Bisacodyl (Bisacodyl 10 Mg Supp.Rect) 10 mg [place] Q2-3DAYS PRN PRN Reason: Constipation Budesonide (Budesonide 0.5 Mg/2 Ml Ampul.Neb) 0.5 mg NEB Q12 [facility] Last Admin: 02/13/21 08:52 Dose: 0.5 mg Documented by: Docusate Sodium (Docusate Sodium 100 Mg Capsule) 100 mg PO BID [facility] Last Admin: 02/13/21 08:30 Dose: 100 mg Documented by: Enoxaparin Sodium (Enoxaparin 40 Mg/0.4 Ml Syringe) 40 mg SQ DAILY [facility] Last Admin: 02/13/21 08:29 Dose: 40 mg Documented by: Hydromorphone HCl (Hydromorphone 0.5 Mg/0.5 Ml Syringe) 0.25 - 0.5 mg IV Q4HP PRN; Protocol PRN Reason: Per Pain Protocol Last Admin: 02/12/21 10:10 Dose: 0.5 mg Documented by: Potassium Chloride 40 meq/ (Dextrose) 520 mls @ 130 mls/hr IV UD PRN PRN Reason: K+ = or < 3.5 Acetaminophen (Ofirmev) 650 mg in 65 mls @ 130 mls/hr IV Q6HP PRN; Protocol PRN Reason: Per Pain Protocol/Fever > 101 Magnesium Sulfate (Magnesium Sulfate) 2 gm in 50 mls @ 50 mls/hr IV UD PRN PRN Reason: MG = or < 1.7 Iron Carb/Multivit/Marketing Business Analyst/Folic Acid (Multivit,Ther Iron,Ca,Fa & Min 1 Tablet) 1 tab PO DAILY [facility] Last Admin: 02/13/21 08:30 Dose: 1 tab Documented by: Ketorolac Tromethamine (Ketorolac 15 Mg/Ml Vial) 15 mg IV Q6HP PRN; Protocol PRN Reason: Per Pain Protocol Stop: 02/13/21 11:47 Last Admin: 02/13/21 00:40 Dose: 15 mg Documented by: Magnesium Hydroxide (Magnesium Hydroxide 30 Ml Oral.Susp) 30 ml PO BIDP PRN PRN Reason: Constipation Melatonin (Melatonin 3 Mg Tablet) 3 mg PO HSP PRN PRN Reason: Insomnia Last Admin: 02/12/21 21:29 Dose: 3 mg Documented by: Nicotine (Nicotine 14 Mg Patch) 14 mg TOPICAL DAILY@1000 [facility] Last Admin: 02/13/21 09:36 Dose: 14 mg Documented by: Ondansetron HCl (Ondansetron 4 Mg Odt Tablet) 4 mg SL Q4-6HP PRN; Protocol PRN Reason: Nausea And Vomiting Ondansetron HCl (Ondansetron 4 Mg/2 Ml Vial) 4 mg IV Q4-6HP PRN; Protocol PRN Reason: Nausea And Vomiting Polyethylene Glycol (Polyethylene Glycol 3350 17 Gm Packet) 17 gm PO DAILYP PRN PRN Reason: Constipation Senna/Docusate Sodium (Sennosides/Docusate Sodium 1 Tab Tablet) 1 tab PO HS [facility] Last Admin: 02/12/21 19:10 Dose: Not Given Documented by: Sodium Biphosphate/Sodium Phosphate (Fleets Adult Enema) 1 dose [place] Q3-4DAYS PRN PRN Reason: Constipation Sodium Chloride (0.9 % Sodium Chloride 10 Ml Syringe) 10 ml IV Q8 [facility] Last Admin: 02/13/21 06:01 Dose: Not Given Documented by: Thiamine HCl (Thiamine 100 Mg Tablet) 100 mg PO DAILY [facility] Last Admin: 02/13/21 08:30 Dose: 100 mg Documented by: Throat Lozenges (Benzocaine/Menthol 1 Lozenge) 1 lozenge PO PRN PRN PRN Reason: Sore Throat A/P Time Spent With Patient Time: Total time spent is greater than 50% in coordination of care (as documented) at patient's floor/unit and/or counseling patient: POD 2 Left hip Praveena Arthroplasty for femoral neck fracture. Doing well. Mobilizing appropriately. F/U Ortho myself of [place] in 2 weeks for wound check WBAT. Rx for pain control and DVT proph provided. Discharge planning as per hospitalist team.
--- NOTE | 2021-02-13 12:46 | Internal Med Progress Note ---
SUBJECTIVE Subjective Patient information: Note initiated : 02/13/21 at 12:45 pm Service Date, if different from initiated Date: [] Patient: Fred Christine a 65 y/o F admitted on 02/11/21 for fall. Chief Complaint: Follow-up hip fracture Interval history Ms. Christine is a 65 year old F with a history of alcoholism , active smoker, anemia/hypertension/anxiety who presents to the ER complaining of hip pain following a fall this morning after she tripped and landed on her left hip early this morning and was on the floor for a few hours. Initial work-up in the ER was consistent with left hip fracture. Dr. Geronimo orthopedics was consulted and recommended hospitalization and surgical intervention. Subsequently hospitalist service was consulted to facilitate the process. At the time of my evaluation patient is alert and oriented. She is currently on 3 to 4 days oxygen due to significant pain in holding her breath. She however denies recent fever, chills, Covid symptoms, exposure to sick contacts, yellow productive sputum. She continues to drink alcohol regularly. She denies weakn ess following fall, lightheadedness, dizziness, loss of consciousness, urinary incontinence or unilateral sensation loss. 02/12doing well postop. Some pain associated with the fracture and ORIF. Wo rked with physical therapy. Appetite okay. Remains on O2, attempting to wean postoperatively. Goal SaO2 92%. Requested nicotine patch. 8/1sitting up at chair at bedside. Pain is generally controlled. Not looking forward to having to rehab after her second hip fracture. Has been diagnosed wi osteoporosis, is on alendronate as well as calcium and vitamin D. Still requiring 3 L of oxygen. Chest x-ray at admission showed some chronic mild interstitial fibrotic changes. No diagnosed history of lung disease. Did have prolonged recovery after a bout of pneumonia in November 2019. Constitutional Vitals: Vital Signs Temp Pulse Resp BP Pulse Ox 98.2 F 105 H 14 120/64 91 02/13/21 11:19 02/13/21 11:19 02/13/21 11:19 02/13/21 11:19 02/13/21 11:19 Period Temp Pulse Resp BP Sys/Bartlett Pulse Ox Last 24 Hr 98.2 F-99.7 F 82-105 - 88-130/47-64 88-92 Intake and Output 02/12/21 02/13/21 02/13/21 21:59 05:59 13:59 Intake Total 240 480 240 Output Total 300 700 Balance -60 -220 240 Weight 125 lb GENERAL: Sitting up in chair, in no acute distress RESPIRATORY: Few basal rales initially, clear with deep respirations, coarse breath sounds bilaterally without wheezes or rhonchi CARDIOVASCULAR: Regular rate and rhythm, no peripheral edema ABDOMEN: Nondistended EXTREMITIES: Right lower extremity vascularly intact NEURO: Alert, oriented x3, moves all extremities equally Intake & Output: Intake & Output 02/12/21 02/13/21 02/13/21 21:59 05:59 13:59 Intake Total 240 480 240 Output Total 300 700 Balance -60 -220 240 Weight 125 lb Intake: Oral 240 480 240 Output: Urine Catheter Amount 700 Void Amount 250 Urine/Stool Mix 50 Other: Meal Lunch Lunch Percent of Meal Consumed 25% 75% Feeding Ability Independent Independent Urine Appearance Clear Clear Urine Color Dark Yellow Dark Yellow Urine Odor Strong Normal Stool Size Small Stool Color Dark Red Blood Stool Consistency Liquid OBJ DATA Labs CBC & Chem 7: 02/13/21 05:28 02/13/21 05:27 Labs: Abnormal Lab Results 02/13/21 02/13/21 02/12/21 05:28 05:27 05:43 WBC RBC 3.05 L Hgb 10.3 L Hct 31.6 L MCV 103.6 H MCH MPV 11.7 H Neut % (Auto) Lymph % (Auto) Lymph # (Auto) 1.32 L Absolute Neutrophils PT 14.8 H Anion Gap Creatinine 0.5 L Glucose Calcium 8.2 L Total Protein 5.8 L Albumin 2.7 L Albumin/Globulin Ratio 0.9 L 02/12/21 02/12/21 02/11/21 05:43 05:43 09:23 WBC 11.4 H RBC 3.47 L Hgb 11.3 L Hct 35.1 L MCV 101.2 H MCH MPV 11.4 H Neut % (Auto) 78.1 H Lymph % (Auto) 13.3 L Lymph # (Auto) Absolute Neutrophils 8.87 H PT Anion Gap 6.0 L 7.0 L Creatinine 0.4 L Glucose 107 H Calcium 8.3 L 8.5 L Total Protein Albumin 2.6 L 2.7 L Albumin/Globulin Ratio 0.7 L 0.8 L 07/30/21 07:30 WBC RBC 3.36 L Hgb 11.6 L Hct 33.9 L MCV 100.9 H MCH 34.5 H MPV 11.6 H Neut % (Auto) 81.9 H Lymph % (Auto) 9.9 L Lymph # (Auto) 0.95 L Absolute Neutrophils PT Anion Gap Creatinine Glucose Calcium Total Protein Albumin Albumin/Globulin Ratio Meds: Medications Acetaminophen (Acetaminophen 325 Mg Tablet) 650 mg PO Q6HP PRN; Protocol PRN Reason: Per Pain Protocol/Fever > 101 Hydrocodone Bitart/Acetaminophen (Hydrocodone/Apap 7.5/325mg Tablet) 0 tab PO Q4HP PRN; Protocol PRN Reason: Per Pain Protocol Last Admin: 02/13/21 12:31 Dose: 2 tab Documented by: Albuterol/Ipratropium (Ipratropium/Albuterol 3 Ml Ampul.Neb) 3 ml NEB Q4HP PRN PRN Reason: Shortness Of Breath Last Admin: 02/13/21 08:52 Dose: 3 ml Documented by: Bisacodyl (Bisacodyl 10 Mg Supp.Rect) 10 mg [place] Q2-3DAYS PRN PRN Reason: Constipation Budesonide (Budesonide 0.5 Mg/2 Ml Ampul.Neb) 0.5 mg NEB Q12 [facility] Last Admin: 02/13/21 08:52 Dose: 0.5 mg Documented by: Docusate Sodium (Docusate Sodium 100 Mg Capsule) 100 mg PO BID [facility] Last Admin: 02/13/21 08:30 Dose: 100 mg Documented by: Enoxaparin Sodium (Enoxaparin 40 Mg/0.4 Ml Syringe) 40 mg SQ DAILY [facility] Last Admin: 02/13/21 08:29 Dose: 40 mg Documented by: Hydromorphone HCl (Hydromorphone 0.5 Mg/0.5 Ml Syringe) 0.25 - 0.5 mg IV Q4HP PRN; Protocol PRN Reason: Per Pain Protocol Last Admin: 02/12/21 10:10 Dose: 0.5 mg Documented by: Potassium Chloride 40 meq/ (Dextrose) 520 mls @ 130 mls/hr IV UD PRN PRN Reason: K+ = or < 3.5 Acetaminophen (Ofirmev) 650 mg in 65 mls @ 130 mls/hr IV Q6HP PRN; Protocol PRN Reason: Per Pain Protocol/Fever > 101 Magnesium Sulfate (Magnesium Sulfate) 2 gm in 50 mls @ 50 mls/hr IV UD PRN PRN Reason: MG = or < 1.7 Iron Carb/Multivit/Administrative Specialist/Folic Acid (Multivit,Ther Iron,Ca,Fa & Min 1 Tablet) 1 tab PO DAILY [facility] Last Admin: 02/13/21 08:30 Dose: 1 tab Documented by: Magnesium Hydroxide (Magnesium Hydroxide 30 Ml Oral.Susp) 30 ml PO BIDP PRN PRN Reason: Constipation Melatonin (Melatonin 3 Mg Tablet) 3 mg PO HSP PRN PRN Reason: Insomnia Last Admin: 02/12/21 21:29 Dose: 3 mg Documented by: Nicotine (Nicotine 14 Mg Patch) 14 mg TOPICAL DAILY@1000 [facility] Last Admin: 02/13/21 09:36 Dose: 14 mg Documented by: Ondansetron HCl (Ondansetron 4 Mg Odt Tablet) 4 mg SL Q4-6HP PRN; Protocol PRN Reason: Nausea And Vomiting Ondansetron HCl (Ondansetron 4 Mg/2 Ml Vial) 4 mg IV Q4-6HP PRN; Protocol PRN Reason: Nausea And Vomiting Polyethylene Glycol (Polyethylene Glycol 3350 17 Gm Packet) 17 gm PO DAILYP PRN PRN Reason: Constipation Senna/Docusate Sodium (Sennosides/Docusate Sodium 1 Tab Tablet) 1 tab PO HS [facility] Last Admin: 02/12/21 19:10 Dose: Not Given Documented by: Sodium Biphosphate/Sodium Phosphate (Fleets Adult Enema) 1 dose [place] Q3-4DAYS PRN PRN Reason: Constipation Sodium Chloride (0.9 % Sodium Chloride 10 Ml Syringe) 10 ml IV Q8 [facility] Last Admin: 02/13/21 06:01 Dose: Not Given Documented by: Thiamine HCl (Thiamine 100 Mg Tablet) 100 mg PO DAILY [facility] Last Admin: 02/13/21 08:30 Dose: 100 mg Documented by: Throat Lozenges (Benzocaine/Menthol 1 Lozenge) 1 lozenge PO PRN PRN PRN Reason: Sore Throat A/P Narrative A/P Narrative: Vwrhm-[id number]-old female who presents after ground-level fall found to have left femoral neck fracture. Left femoral neck fracture: Postop day #2 status post left hip hemiarthroplasty -Tolerated procedure well Acute hypoxic respiratory failure -Mild hypoxia, requiring 3 LPM -Suspect due in part to underlying chronic lung disease (no formal diagnosis of COPD, but smoking history) Probable COPD -Has nebulizer at home since she was diagnosed with pneumonia in November 2019 -Does not appear to have a formal diagnosis of COPD, though likely has noted -Mild fibrotic changes which are chronic on admission chest x-ray Hypertension -On FITO inhibitor at home, holding in the perioperative period Tobacco abuse -Nicotine patch -States that she has now stopped smoking History of alcohol abuse -History of mild withdrawal -No alcohol use for the past few months Plan: -PT and postop activity as per orthopedics -Wean oxygen as able -Resume home antihypertensives -Continue nicotine patch -Monitor for any withdrawal phenomenon -Continue with bronchodilators, consider inhaled corticosteroid -DVT prophylaxis as per orthopedics QUALITY Stroke Symptom Onset Unknown: No VTE Deep Vein Thrombosis/Pulmonary Embolism Present on Admission: No
[2021-02-13] MEDS: MELATONIN 3 MG TABLET PO PRN (20:40)
[2021-02-13] MEDS: MAGNESIUM OXIDE 400 MG TABLET PO SCH (20:40)
[2021-02-13] MEDS: SENNOSIDES/DOCUSATE SODIUM 1 TAB TABLET PO SCH (20:40)
[2021-02-13] MEDS ORDERED: PRIMIDONE 50 MG TABLET PO SCH (21:00)
[2021-02-13] MEDS: HYDROmorphone 0.5 MG/0.5 ML SYRINGE IV PRN (22:27)
[2021-02-14] MEDS: HYDROCODONE/APAP 7.5/325MG TABLET PO PRN ×3 (02:42→12:09)
[2021-02-14] MEDS: 0.9 % SODIUM CHLORIDE 10 ML SYRINGE IV SCH (06:04)
[2021-02-14 07:10] LABS: Hematocrit 30.7 % (36.0-48.0); Hemoglobin 10.2 g/dL (12.0-15.0); Mean Cell Volume 102.3 fL (80.0-100.0); Mean Corpuscular HGB Conc 33.2 g/dL (31.0-36.0); Platelet Count 193 K/mcL (140-440); Red Cell Distribution Width 13.8 % (11.5-14.5); WBC 7.1 K/mcL (4.5-11.0)
[2021-02-14 07:20] LABS: INR 1.1 (0.9-1.1); Prothrombin Time 15.2 sec (11.9-14.5)
[2021-02-14 07:50] LABS: Albumin 2.5 gm/dL (3.2-5.2); Blood Urea Nitrogen 12 mg/dL (8-23); Calcium 8.1 mg/dL (8.6-10.4); Carbon Dioxide 25 mmol/L (22-30); Chloride 106 mmol/L (96-108); Glomerular Filtration Rate 100; Glucose 114 mg/dL (70-105); Phosphorous 2.8 mg/dL (2.5-4.5)
[2021-02-14] MEDS ORDERED: POTASSIUM CHLORIDE 20 MEQ TABLET PO SCH (08:00)
[2021-02-14] MEDS: ENOXAPARIN 40 MG/0.4 ML SYRINGE SQ SCH (08:05)
[2021-02-14] MEDS: MAGNESIUM OXIDE 400 MG TABLET PO SCH (08:06)
[2021-02-14] MEDS: MULTIVIT,THER IRON,CA,FA & MIN 1 TABLET PO SCH (08:06)
[2021-02-14] MEDS: THIAMINE 100 MG TABLET PO SCH (08:07)
[2021-02-14] MEDS: DOCUSATE SODIUM 100 MG CAPSULE PO SCH (08:07)
[2021-02-14] MEDS ORDERED: FOLIC ACID 1 MG TABLET PO SCH (09:00)
[2021-02-14] MEDS ORDERED: LISINOPRIL 10 MG TABLET PO SCH (09:00)
[2021-02-14] MEDS ORDERED: FUROSEMIDE 20 MG TABLET PO SCH (09:00)
[2021-02-14] MEDS: BUDESONIDE 0.5 MG/2 ML AMPUL.NEB NEB SCH (09:05)
[2021-02-14] MEDS: NICOTINE 14 MG PATCH TOPICAL SCH (10:03)
--- NOTE | 2021-02-14 13:56 | Discharge Summary ---
Discharge Provider Provider Patient information: Note initiated : 02/14/21 at 1:52 pm Service Date, if different from initiated Date: [] Patient: Fred Christine 65 y/o F admitted on 02/11/21 for fall. Chief Complaint: Left hip fracture Date of admission: 02/11/21 10:46 Discharge date: 02/14/21 Primary care physician: Alexx Caro MD Attending physician on admission: Dajuan Aguilar Consults: 02/11/21 Consult to Physician [CONS] Stat Comment: Consulting Provider: Dajuan Aguilar Reason For Exam: Physician to Consult Consult to Physician [CONS] Stat Comment: Consulting Provider: Arik Geronimo Reason For Exam: Physician to Consult Attending physician on discharge: Tania Tan Discharge Meds Discharge Medications Home Medications folic acid 1 mg PO DAILY 12/05/19 [History Confirmed 02/12/21 Last Taken 12/26/19 07:00] cholecalciferol (vitamin D3) 50 mcg (2,000 unit) capsule 50 mcg PO QDAY 04/15/20 [History Confirmed 02/12/21 Last Taken Unknown] sertraline 100 mg tablet 100 mg PO QDAY #30 tab 12/02/20 [Rx Confirmed 02/12/21 Last Taken Unknown] ipratropium 0.5 mg-albuterol 3 mg (2.5 mg base)/3 mL nebulization soln 3 ml INHALATION Q6H PRN 12/21/20 [History Confirmed 02/12/21 Last Taken Unknown] magnesium oxide 400 mg PO BID 12/21/20 [History Confirmed 02/12/21 Last Taken Unknown] primidone 50 mg tablet 50 mg PO QHS #30 tab 01/19/21 [Rx Confirmed 02/12/21 Last Taken Unknown] lisinopril 10 mg tablet 10 mg PO DAILY #30 tab 01/25/21 [Rx Confirmed 02/12/21 Last Taken Unknown] aspirin 81 mg PO BID #60 tab 02/11/21 [Rx Last Taken Unknown] buprenorphine-naloxone 1 film SUBLINGUAL DAILY 02/11/21 [History Confirmed 02/11/21 Last Taken Unknown] furosemide 20 mg PO DAILY 02/11/21 [History Confirmed 02/11/21 Last Taken Unknown] hydrocodone-acetaminophen 1 tab PO Q6H PRN #60 tab 02/11/21 [Rx Last Taken Unknown] potassium chloride [Klor-Con M20] 20 meq PO DAILY 02/11/21 [History Confirmed 02/11/21 Last Taken Unknown] qrlqurxv-ocjh-YH-calcium-mins [Thera M Plus (ferrous fumarat)] 1 tab PO DAILY #30 tab 02/14/21 [Rx Last Taken Unknown] nicotine 14 mg TOPICAL DAILY@1000 #28 ea 02/14/21 [Rx Last Taken Unknown] COURSE Hospital Course Hospital course: Ms. Christine is a 65 year old F with a history of alcoholism , active smoker, anemia/hypertension/anxiety who presents to the ER complaining of hip pain following a fall this morning after she tripped and landed on her left hip early this morning and was on the floor for a few hours. Initial work-up in the ER was consistent with left hip fracture. Dr. Geronimo orthopedics was consulted and recommended hospitalization and surgical intervention. Subsequently hospitalist service was consulted to facilitate the process. At the time of my evaluation patient is alert and oriented. She is currently on 3 to 4 days oxygen due to significant pain in holding her breath. She however denies recent fever, chills, Covid symptoms, exposure to sick contacts, yellow productive sputum. She continues to drink alcohol regularly. She denies weakness following fall, lightheadedness, dizziness, loss of consciousness, urinary incontinence or unilateral sensation loss. 02/12doing well postop. Some pain associated with the fracture and ORIF. Worked with physical therapy. Appetite okay. Remains on O2, attempting to wean postoperatively. Goal SaO2 92%. Requested nicotine patch. 8/1sitting up at chair at bedside. Pain is generally controlled. Not looking forward to having to rehab after her second hip fracture. Has been diagnosed with osteoporosis, is on alendronate as well as calcium and vitamin D. Still requiring 3 L of oxygen. Chest x-ray at admission showed some chronic mild interstitial fibrotic changes. No diagnosed history of lung disease. Did have prolonged recovery after a bout of pneumonia in November 2019. 82continue to make progress with physical therapy. Has been accepted at [facility] for skilled rehab. Patient clarified that she has been on Suboxone, sees Germán Dunn APRN at [facility]. She is not noticed any side effects of being off Suboxone in the hospital (it was not on her pharmacy medication list, however she gets it filled at a different pharmacy than the remainder of her medications due to availability issues). We discussed that Suboxone may interfere with adequate analgesia from hydrocodone/acetaminophen which she is receiving for acute postoperative pain. At this point she will defer resumption of Suboxone. She can discuss further management with the [facility] as needed. She is aware as her use of opioid analgesics for postoperative pain decreases, she may require resumption of Suboxone. This medication will be kept on her home medication list. I strongly urged the patient to seek vaccination against SARS-CoV-2 infection, she will attempt to schedule an appointment for vaccination while she is at skilled rehab. Discharge diagnosis: Left femoral neck fracture Secondary discharge diagnosis: Acute hypoxic respiratory failure postoperatively -Suspect due in part to underlying chronic lung disease (no formal diagnosis, but smoking history and mild fibrotic changes on x-ray) -Resolved at discharge Hypertension -On FITO inhibitor at home Tobacco abuse -Nicotine patch -States that she has now stopped smoking Procedures: Left hip hemiarthroplasty by Dr. Geronimo on 02/11 Complications: None Time Spent with Patient Time attestation: Total time spent providing and/or coordinating discharge services: EXAM Constitutional Vitals: Temp Pulse Resp BP Pulse Ox 98.8 F 97 H 22 118/64 93 02/14/21 12:00 02/14/21 12:00 02/14/21 12:00 02/14/21 12:00 02/14/21 12:00 GENERAL: In bed no acute distress RESPIRATORY: Lungs clear, mildly diminished throughout, no wheezes CARDIOVASCULAR: Regular rate and rhythm ABDOMEN: Nondistended EXTREMITIES: No edema, left extremity neurovascularly intact NEURO: Alert, oriented x3, moves all extremities, speech fluent Discharge Data Data Completed and Pending Labs on day of discharge: Labs from last 24 hours 02/14/21 02/14/21 02/14/21 06:00 06:00 06:00 WBC 7.1 RBC 3.00 L Hgb 10.2 L Hct 30.7 L MCV 102.3 H MCH 34.0 MCHC 33.2 RDW 13.8 Plt Count 193 MPV 11.0 H PT 15.2 H INR 1.1 Sodium 139 Potassium 3.8 Chloride 106 Carbon Dioxide 25 Anion Gap 8.0 BUN 12 Creatinine 0.5 L GFR Calculation 100 Glucose 114 H Calcium 8.1 L Phosphorus 2.8 Albumin 2.5 L Impressions Impressions: Date of Service: 02/11/21 Procedure(s): XR hip LT comp 2VW CLINICAL INFORMATION: L hip pain from mechanical fall IMPRESSION: Nondisplaced transcervical fracture-left femoral neck Date of Service: 02/11/21 Procedure(s): XR chest 1V portable CLINICAL INFORMATION: pre surgery IMPRESSION: Mild cardiomegaly and mild diffuse interstitial fibrosis with minor bibasilar atelectasis or scarring Date of Service: 02/11/21 Procedure(s): XR hip LT comp 2VW CLINICAL INFORMATION: Post op praveena hip IMPRESSION: Left hip prostheses in anatomic alignment Discharge Plan Patient/Caregiver Discharge Instructions Activity: increase activity as tolerated Diet: Regular Diet Prescriptions: New hydrocodone-acetaminophen 7.5-325 mg tablet 1 tab PO Q6H PRN (Reason: pain) Qty: 60 RF: 0 aspirin 81 mg tablet,chewable 81 mg PO BID Qty: 60 RF: 0 nicotine 14 mg/24 hr Patch 24 Hour 14 mg topical DAILY@1000 Qty: 28 RF: 0 Thera M Plus (ferrous fumarat) 9 mg iron-400 mcg Tablet 1 tab PO DAILY Qty: 30 RF: 0 Continued sertraline 100 mg tablet 100 mg PO QDAY Qty: 30 RF: 2 lisinopril 10 mg tablet 10 mg PO DAILY Qty: 30 RF: 3 cholecalciferol (vitamin D3) 50 mcg (2,000 unit) capsule 50 mcg PO QDAY RF: 0 magnesium oxide 400 mg magnesium capsule 400 mg PO BID RF: 0 ipratropium-albuterol 0.5 mg-3 mg(2.5 mg base)/3 mL solution for nebulization 3 ml inhalation Q6H PRN (Reason: Shortness Of Breath Or Wheezing) RF: 0 primidone 50 mg tablet 50 mg PO QHS Qty: 30 RF: 3 folic acid 1 MG tablet 1 mg PO DAILY RF: 0 potassium chloride [Klor-Con M20] 20 mEq tablet,ER particles/crystals 20 meq PO DAILY RF: 0 furosemide 20 mg tablet 20 mg PO DAILY RF: 0 buprenorphine-naloxone 8-2 mg film 1 film sublingual DAILY RF: 0 Discontinued nicotine 21 mg/24 hr patch 24 hour 1 patch transdermal QDAY RF: 0 Other Ambulatory Orders: OT Discharge Order (Routine) Location: None Selected Ordered By: Tania Tan Physical Therapy at Discharge - General (Routine) Location: None Selected Ordered By: Tania Tan Follow Up Plan Follow up with: Alexx Caro MD [Primary Care Provider] - Arik Geronimo MD [Physician] - Patient Disposition: Xfer SNF Prognosis: Fair Rehab Potential: Fair I certify that the patient requires SNF services: Yes Overall status at discharge: patient is not back to baseline Discharge Orders: Discharge Order (Routine); Ordered 02/14/21 Ordered By: Arik Geronimo QUALITY VTE Deep Vein Thrombosis/Pulmonary Embolism Present on Admission: No
== END 2021-02-14 14:55 | DRG 521 ==
LOC: ED 04:49 → MEDSUR 10:45
PROVIDERS: ADMIT Internal Medicine; ATTEND Internal Medicine